=== PATIENT | male | born 1945 | race Caucasian/White ===

== ENCOUNTER 2020-08-06 10:33 | Emergency (ER) | payer MEDICARE, BC ==
[2020-08-06] MEDS ORDERED: Iopamidol 612 MG/ML 100 ML Bottle IVPUSH ONE (11:07)
[2020-08-06] MEDS ORDERED: Sodium Chloride 0.9% 10 ML Syringe FLUSH PRN (11:07)
[2020-08-06] MEDS ORDERED: Diatrizoate Meglumine/Diatrizoate Sodium 37% 120 ML Bottle PO ONE (11:07)
--- NOTE | 2020-08-06 11:07 | EDM.PDOC ---
ED HPI GENERAL MEDICAL PROBLEM - General Chief Complaint: Fever Stated Complaint: [facility] Time Seen by Provider: 08/06/20 10:53 Source of Information: Reports: Patient, Family (son), RN Notes Reviewed History Limitations: Reports: No Limitations - History of Present Illness INITIAL COMMENTS - FREE TEXT/NARRATIVE: Patient is a 74-year-old male who is brought into the ER by [facility] for the evaluation of a fever. Patient states that earlier this morning, he developed some right lower quadrant abdominal pain and high fever. He states that his fever at home was 103 F. When he presents to the ER, his temperature is 99.2 F. 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 The son in the room notes that the patient did have a UTI, roughly 2 months ago that was treated. Patient himself is not complaining of any nausea/vomiting/diarrhea, his last bowel movement was yesterday. He is not complaining of dysuria, but is having some urinary frequency which is an interval change for this gentleman. Primary care provider is Dr. Marc, and a provider down in [place]. He states that he has not felt this pain before ever, states that he cannot even stand straight, because the pain is so bad. He also has a remote history of a right hip replacement in March. He is also not having any cough or shortness of breath. The patient took 1 dose of isis-azu-[id number] medicine, that he got from [place] that appears to be a muscle relaxer (methocarbamol) , steroid (betamethasone), and indomethacin. Right Abdomen Pain Score (Numeric/FACES): 8 - Related Data Allergies Allergy/AdvReac Type Severity Reaction Status Date / Time No Known Allergies Allergy Verified 08/06/20 10:47 Home Meds: Home Meds levoFLOXacin [Levaquin] 500 mg PO DAILY #7 tab 08/06/20 [Rx] Past Medical History Cardiovascular History: Reports: Stents Gastrointestinal History: Reports: Colon Polyp - Infectious Disease History Infectious Disease History: Reports: Chicken Pox, Measles, Mumps - Past Surgical History GI Surgical History: Reports: Appendectomy Musculoskeletal Surgical History: Reports: Hip Replacement, Other (See Below) Other Musculoskeletal Surgeries/Procedures:: R Social & Family History - Tobacco Use Tobacco Use Status *Q: Current Every Day Tobacco User Years of Tobacco use: 50 Packs/Tins Daily: 0.3 - Caffeine Use Caffeine Use: Reports: Coffee - Recreational Drug Use Recreational Drug Use: Yes ED ROS ENT - Review of Systems Review Of Systems: Comprehensive ROS is negative, except as noted in HPI. ED EXAM, ENT - Physical Exam Exam: See Below Exam Limited By: No Limitations General Appearance: Alert, WD/WN, No Apparent Distress Respiratory/Chest: No Respiratory Distress, Lungs Clear, Normal Breath Sounds, No Accessory Muscle Use, Chest Non-Tender Cardiovascular: Normal Peripheral Pulses, Regular Rate, Rhythm, No Edema GI/Abdominal: Normal Bowel Sounds, Soft, No Distention, No Mass, Tender (RLQ exquisite tenderness) Extremities: Normal Inspection, Normal Capillary Refill Neurological: Alert, Oriented, Normal Cognition, No Motor/Sensory Deficits Psychiatric: Normal Affect, Normal Mood Skin: Warm, Dry, Intact, Normal Color, No Rash Course - Vital Signs Last Recorded V/S: Last Vital Signs Temp 99.2 F 08/06/20 10:39 Pulse 89 08/06/20 10:39 Resp 16 08/06/20 10:39 BP 119/97 H 08/06/20 10:39 Pulse Ox 97 08/06/20 10:39 - Orders/Labs/Meds Orders: Active Orders 24 hr Category Date Time Status Peripheral IV Care [RC] . DIRECTED Care 08/06/20 11:02 Active CULTURE BLOOD [BC] Stat Lab 08/06/20 10:47 Received CULTURE BLOOD [BC] Stat Lab 08/06/20 10:55 Received UA W/MICROSCOPIC [URIN] Stat Lab 08/06/20 11:01 Ordered Sodium Chloride 0.9% [Saline Flush] Med 08/06/20 11:01 Active 10 ml FLUSH ASDIRECTED PRN Blood Culture x2 Reflex Set [OM.PC] Stat Oth 08/06/20 10:41 Ordered Peripheral IV Insertion Adult [OM.PC] Routine Oth 08/06/20 11:01 Ordered Medication Orders Sodium Chloride (Sodium Chloride 0.9% 10 Ml Syringe) 10 ml FLUSH ASDIRECTED PRN PRN Reason: Keep Vein Open Last Admin: 08/06/20 12:13 Dose: 10 ml Documented by: Admin: 08/06/20 11:58 Dose: 10 ml Documented by: MUSHTAQ Labs: Laboratory Tests 08/06/20 08/06/20 08/06/20 Range/Units 10:39 10:47 10:47 WBC 15.60 H (4.23-9.07) K/mm3 RBC 4.44 L (4.63-6.08) M/mm3 Hgb 13.5 L (13.7-17.5) gm/dl Hct 39.8 L (40.1-51.0) % MCV 89.6 D (79.0-92.2) fl MCH 30.4 (25.7-32.2) pg MCHC 33.9 (32.2-35.5) g/dl RDW Std Deviation 48.4 H (35.1-43.9) fL Plt Count 231 (163-337) K/mm3 MPV 9.8 (9.4-12.3) fl Neut % (Auto) 80.5 H (34.0-67.9) % Lymph % (Auto) 10.4 L (21.8-53.1) % [place] % (Auto) 8.3 (5.3-12.2) % Eos % (Auto) 0.4 L (0.8-7.0) Baso % (Auto) 0.1 (0.1-1.2) % Neut # (Auto) 12.55 H (1.78-5.38) K/mm3 Lymph # (Auto) 1.63 (1.32-3.57) K/mm3 [place] # (Auto) 1.29 H (0.30-0.82) K/mm3 Eos # (Auto) 0.06 (0.04-0.54) K/mm3 Baso # (Auto) 0.02 (0.01-0.08) K/mm3 Manual Slide Review Normal smear Sodium 135 L (136-145) mEq/L Potassium 3.9 (3.5-5.1) mEq/L Chloride 98 (98-107) mEq/L Carbon Dioxide 24 (21-32) mEq/L Anion Gap 16.9 H (5-15) BUN 20 H (7-18) mg/dL Creatinine 1.0 (0.7-1.3) mg/dL Est Cr Clr Drug Dosing 58.76 mL/min Estimated GFR (MDRD) > 60 (>60) mL/min BUN/Creatinine Ratio 20.0 H (14-18) Glucose 109 H (70-99) mg/dL Lactic Acid (0.4-2.0) mmol/L Calcium 9.0 (8.5-10.1) mg/dL Total Bilirubin 0.8 (0.2-1.0) mg/dL AST 19 (15-37) U/L ALT 35 (16-63) U/L Alkaline Phosphatase 60 (46-116) U/L C-Reactive Protein 5.7 H* (<1.0) mg/dL Total Protein 7.3 (6.4-8.2) g/dl Albumin 3.5 (3.4-5.0) g/dl Globulin 3.8 gm/dL Albumin/Globulin Ratio 0.9 L (1-2) Urine Color (Yellow) Urine Appearance (Clear) Urine pH (5.0-8.0) Ur Specific [place] (1.005-1.030) Urine Protein (Negative) Urine Glucose (UA) (Negative) Urine Ketones (Negative) Urine Occult Blood (Negative) Urine Nitrite (Negative) Urine Bilirubin (Negative) Urine Urobilinogen (0.2-1.0) Ur Leukocyte Esterase (Negative) SARS-CoV-2 RNA ([place]) Negative (NEGATIVE) 08/06/20 08/06/20 Range/Units 10:47 12:37 WBC (4.23-9.07) K/mm3 RBC (4.63-6.08) M/mm3 Hgb (13.7-17.5) gm/dl Hct (40.1-51.0) % MCV (79.0-92.2) fl MCH (25.7-32.2) pg MCHC (32.2-35.5) g/dl RDW Std Deviation (35.1-43.9) fL Plt Count (163-337) K/mm3 MPV (9.4-12.3) fl Neut % (Auto) (34.0-67.9) % Lymph % (Auto) (21.8-53.1) % [place] % (Auto) (5.3-12.2) % Eos % (Auto) (0.8-7.0) Baso % (Auto) (0.1-1.2) % Neut # (Auto) (1.78-5.38) K/mm3 Lymph # (Auto) (1.32-3.57) K/mm3 [place] # (Auto) (0.30-0.82) K/mm3 Eos # (Auto) (0.04-0.54) K/mm3 Baso # (Auto) (0.01-0.08) K/mm3 Manual Slide Review Sodium (136-145) mEq/L Potassium (3.5-5.1) mEq/L Chloride (98-107) mEq/L Carbon Dioxide (21-32) mEq/L Anion Gap (5-15) BUN (7-18) mg/dL Creatinine (0.7-1.3) mg/dL Est Cr Clr Drug Dosing mL/min Estimated GFR (MDRD) (>60) mL/min BUN/Creatinine Ratio (14-18) Glucose (70-99) mg/dL Lactic Acid 0.9 (0.4-2.0) mmol/L Calcium (8.5-10.1) mg/dL Total Bilirubin (0.2-1.0) mg/dL AST (15-37) U/L ALT (16-63) U/L Alkaline Phosphatase (46-116) U/L C-Reactive Protein (<1.0) mg/dL Total Protein (6.4-8.2) g/dl Albumin (3.4-5.0) g/dl Globulin gm/dL Albumin/Globulin Ratio (1-2) Urine Color Yellow (Yellow) Urine Appearance Clear (Clear) Urine pH 6.0 (5.0-8.0) Ur Specific [place] 1.020 (1.005-1.030) Urine Protein Trace H (Negative) Urine Glucose (UA) Negative (Negative) Urine Ketones Negative (Negative) Urine Occult Blood Negative (Negative) Urine Nitrite Negative (Negative) Urine Bilirubin Negative (Negative) Urine Urobilinogen 0.2 (0.2-1.0) Ur Leukocyte Esterase Negative (Negative) SARS-CoV-2 RNA ([place]) (NEGATIVE) Meds: Medications Generic Name Dose Route Start Last Admin Trade Name Freq PRN Reason Stop Dose Admin Sodium Chloride 10 ml 08/06/20 11:01 08/06/20 12:13 Sodium Chloride 0.9% 10 Ml Syringe FLUSH 10 ml ASDIRECTED PRN Administration Keep Vein Open Discontinued Medications Generic Name Dose Route Start Last Admin Trade Name Freq PRN Reason Stop Dose Admin Diatrizoate Meglum/Diatrizoate Sod 120 ml 08/06/20 11:07 08/06/20 12:13 Diatrizoate Meglumine/Diatrizoate Sodium 37% 120 Ml Bottle PO 08/06/20 11:08 120 ml ONETIME ONE Administration Sodium Chloride 1,000 mls @ 999 mls/hr 08/06/20 11:28 08/06/20 11:58 Normal Saline IV 08/06/20 12:28 999 mls/hr ONETIME ONE Administration Iopamidol 100 ml 08/06/20 11:07 08/06/20 12:13 Iopamidol 612 Mg/Ml 100 Ml Bottle IVPUSH 08/06/20 11:08 100 ml ONETIME ONE Administration Iopamidol 50 ml 08/06/20 12:14 08/06/20 12:14 Iopamidol 612 Mg/Ml 50 Ml Sdv IVPUSH 08/06/20 12:15 25 ml ONETIME ONE Administration Ondansetron HCl 4 mg 08/06/20 11:28 08/06/20 11:58 Ondansetron 4 Mg/2 Ml Sdv IVPUSH 08/06/20 11:29 4 mg ONETIME ONE Administration Sodium Chloride 10 ml 08/06/20 11:07 Sodium Chloride 0.9% 10 Ml Syringe FLUSH ONETIME PRN IV FLUSH - Re-Assessments/Exams Free Text/Narrative Re-Assessment/Exam: 08/06/20 11:07 Patient presents to the ER for the evaluation of his fever. He did arrive to the ER prior to my shift starting so some labs have already been ordered, have ordered a urinalysis, and a abdomen pelvis CT for further investigation. 08/06/20 11:59 Patient's white blood cell count is elevated at 15.6 with 80% neutrophils on the auto differential. Metabolic panel demonstrates a creatinine/GFR within normal range, lactic in normal range, CRP is elevated at 5.7. Covid screen is negative for today's purposes. Urinalysis is still pending. I did look at the chest x-ray, however official radiology read is pending, I do not see any acute processes that could be worrisome. 08/06/20 12:08 The patient's chest x-ray has been read, and demonstrates no acute abnormalities. There was an area of increased density in the Left upper lung. 08/06/20 12:53 UA is unremarkable for infection; CT report is pending. I was told by nursing staff that the patient was somewhat confused this morning and was found in bed by his in home nurse with all of his clothes on and said that he "couldn't get out of bed". Family is also worried that he seems about the lethargy. 08/06/20 13:[address] abdomen CT demonstrates no acute abnormalities that would be the source of his pain. He does have a fat-containing left inguinal hernia, diffuse diverticulosis without inflammation to consider diverticulitis. There is a small 4 mm lung nodule within the base of the right lung, which should have a noncontrast chest CT in about a year if the patient is a smoker. He does have also mild increase stool within the colon which might be a cause of the abdomen pain, but I do highly believe that the fever is caused by the area of consolidat ion in the lung, concerning for possible pneumonia with fever and elevated white count. We will go ahead and start the patient on antibiotics, his first dose will be IV Levaquin in the ER, and we will give him 7-day course outpatient barr. He will be directed to return to the ER if anything seems to change or worsen in his disease process. Departure - Departure Time of Disposition: 13:22 Disposition: Home, Self-Care 01 Condition: Good Clinical Impression: Right groin pain Pneumonia Qualifiers: Pneumonia type: due to unspecified organism Laterality: left Lung location: upper lobe of lung Qualified Code(s): J18.9 - Pneumonia, unspecified organism Constipation Qualifiers: Constipation type: other constipation type Qualified Code(s): K59.09 - Other constipation - Discharge Information *PRESCRIPTION DRUG MONITORING PROGRAM REVIEWED*: No *COPY OF PRESCRIPTION DRUG MONITORING REPORT IN PATIENT [place]ARRI[place]: No Instructions: Community-Acquired Pneumonia, Adult, [id number] Forms: ED Department Discharge Additional Instructions: You were evaluated in the ER today for your fever, and right lower groin/abdomen pain. Extensive work-up was done at today's visit, to include laboratory evaluation that demonstrated an elevated white count, and elevated markers for inflammation, indicating bacterial infection, your chest x-ray was concerning for pneumonia on your left upper lung. You have been given 1 dose of IV Levaquin in the ER, and will be started on oral Levaquin on outpatient basis, dosing will be 1 tablet daily for the next 7 days. This medication was electronically prescribed to the [facility] located on [address]. Your CT also demonstrated a bit of stool in the colon, which is consistent with constipation, you have been provided with magnesium citrate, please drink one half bottle, if you do not have a rather large bowel movement within a few hours, repeat with the last half bottle. As far as your groin pain goes, you may take 500 mg Tylenol or 600 mg ibuprofen every 6 hours as needed for further pain relief. Please discontinue the use of the medication that you were already taking that came from [place]. Recommend you get a follow-up appointment with your primary care provider, after you have finished your course of antibiotics. Do not hesitate to return to the ER at any time if symptoms change or worsen. Sepsis Event Note (ED) - Evaluation Sepsis Screening Result: No Definite Risk - Focused Exam Vital Signs: Vital Signs Temp Pulse Resp BP Pulse Ox 08/06/20 10:39 99.2 F 89 16 119/97 H 97 - My Orders Last 24 Hours: My Active Orders 08/06/20 10:41 Blood Culture x2 Reflex Set [OM.PC] Stat 08/06/20 10:47 CULTURE BLOOD [BC] Stat 08/06/20 10:55 CULTURE BLOOD [BC] Stat 08/06/20 11:01 UA W/MICROSCOPIC [URIN] Stat Sodium Chloride 0.9% [Saline Flush] 10 ml FLUSH ASDIRECTED PRN Peripheral IV Insertion Adult [OM.PC] Routine 08/06/20 11:02 Peripheral IV Care [RC] . DIRECTED - Assessment/Plan Last 24 Hours: My Active Orders 08/06/20 10:41 Blood Culture x2 Reflex Set [OM.PC] Stat 08/06/20 10:47 CULTURE BLOOD [BC] Stat 08/06/20 10:55 CULTURE BLOOD [BC] Stat 08/06/20 11:01 UA W/MICROSCOPIC [URIN] Stat Sodium Chloride 0.9% [Saline Flush] 10 ml FLUSH ASDIRECTED PRN Peripheral IV Insertion Adult [OM.PC] Routine 08/06/20 11:02 Peripheral IV Care [RC] . DIRECTED
[2020-08-06] MEDS ORDERED: Ondansetron 4 MG/2 ML SDV IVPUSH ONE (11:28)
[2020-08-06] MEDS ORDERED: Sodium Chloride 0.9% 1,000 ML IV ONE (11:28)
[2020-08-06] MEDS: Sodium Chloride 0.9% 10 ML Syringe FLUSH PRN ×2 (11:58→12:13)
--- NOTE | 2020-08-06 12:05 | CR ---
Chest: Portable view of the chest was obtained. Comparison: No prior chest imaging is available. Heart size and mediastinum are normal. Lungs are clear with no acute parenchymal change. Small area of increased density is noted within the left upper lung which is believed to be benign. Bony structures are osteopenic. Mild degenerative change is scattered within the spine as well as within the right acromioclavicular joint. Impression: 1. Findings as noted above. 2. Nothing acute is seen on portable chest x-ray. Diagnostic code #2
[2020-08-06] MEDS ORDERED: Iopamidol 612 MG/ML 50 ML SDV IVPUSH ONE (12:14)
--- NOTE | 2020-08-06 12:59 | CT ---
CT abdomen and pelvis Technique: Multiple axial sections were obtained from above the dome of the diaphragm inferiorly through the pubic symphysis. Intravenous and oral contrast have been given. Delayed images were obtained through the bladder. Reconstructed coronal and sagittal images were also obtained. Comparison: No prior abdominal or pelvic CT study is available. Findings: Slight increased density within the right lung base is seen as well as minimal density within the posterior left lung base. Findings most likely represent areas of scarring. There is a small nodule also seen within the right lung base measuring 4 mm. Atherosclerotic calcification is seen within the coronary arteries. Liver contains no focal parenchymal abnormality. Spleen is within normal limits. Adrenal glands shows no discrete abnormality. Pancreas appears within normal limits. Gallbladder contains no calcified gallstones. Kidneys show symmetric contrast enhancement with no hydronephrosis or mass being seen. Abdominal aorta shows atherosclerotic change which continues into the iliac vessels with no aneurysm. No retroperitoneal adenopathy or mesenteric abnormalities are seen. No pelvic mass or adenopathy is seen. Mild artifact is noted from right hip prosthesis. There is a small fat-containing left inguinal hernia being noted. Entire colon shows evidence of diverticuli. No inflammatory change is seen to indicate definite diverticulitis. Appendix is not visualized. No bowel dilatation or bowel wall thickening is seen. Delayed images show contrast within the distal ureter and within the bladder. Mild increased stool is noted within the colon. Bone window settings were reviewed which show diffuse scattered end plate spurring with no acute osseous abnormality being seen. Impression: 1. Fat-containing left inguinal hernia. Diffuse diverticulosis throughout the colon without inflammatory change or diverticulitis. 2. Small 4 mm nodule within the right lung base. If patient is a smoker, recommend noncontrast chest CT study in one year. If patient is not a smoker, this can be ignored. 3. Mild increased stool within the colon. 4. Other nonacute findings as noted above. Diagnostic code #2
[2020-08-06] MEDS ORDERED: Levofloxacin/Dextrose 5%-Water 500 MG in Premix Bag 1 BAG IV ONE (13:10)
[2020-08-06] MEDS ORDERED: Magnesium Citrate Solution 296 ML Bottle PO ONE (13:12)
== END 2020-08-06 14:50 | disposition home or self-care (01) ==
LOC: JD.ED 10:33
DX: J18.9 Pneumonia, unspecified organism (principal); K59.09 Other constipation; Z72.0 Tobacco use; Z20.822 Contact with and (suspected) exposure to COVID-19
CPT/HCPCS: 36415; 71045; 74177; 80053; 81001; 83605; 85025; 86140; 87040; 96365; 96375; 99285; A9270; J1956; J2405; J7030; Q9963; Q9967; U0002; 99284

== ENCOUNTER 2022-11-03 08:22 | Day surgery (SDC) | payer MEDICARE, BC ==
[~2022-11-03 08:22] MED LIST: Lactated Ringers 1,000 ML IV SCH; Sodium Chloride 0.9% 10 ML Syringe FLUSH PRN; Sodium Chloride 0.9% 10 ML Syringe FLUSH SCH
[2022-11-03] MEDS ORDERED: Propofol 200 MG/20 ML SDV ONE ×2 (09:54→11:00)
[2022-11-03] MEDS ORDERED: fentaNYL 100 MCG/2 ML SDV ONE (09:54)
== END 2022-11-03 12:05 | disposition home or self-care (01) ==
LOC: JD.SDS 08:22
PROVIDERS: ATTEND Surgery
DX: D12.3 Benign neoplasm of transverse colon (principal); D12.0 Benign neoplasm of cecum; D12.2 Benign neoplasm of ascending colon; D12.4 Benign neoplasm of descending colon; K57.30 Diverticulosis of large intestine without perforation or abscess without bleeding; K64.8 Other hemorrhoids; K21.00 Gastro-esophageal reflux disease with esophagitis, without bleeding; K44.9 Diaphragmatic hernia without obstruction or gangrene; K29.50 Unspecified chronic gastritis without bleeding; K29.80 Duodenitis without bleeding; K52.9 Noninfective gastroenteritis and colitis, unspecified; K22.89 Other specified disease of esophagus; K22.2 Esophageal obstruction; D64.9 Anemia, unspecified; I25.10 Atherosclerotic heart disease of native coronary artery without angina pectoris; E66.9 Obesity, unspecified; N40.1 Benign prostatic hyperplasia with lower urinary tract symptoms; N52.9 Male erectile dysfunction, unspecified; I10 Essential (primary) hypertension; Z68.30 Body mass index [BMI] 30.0-30.9, adult; Z90.89 Acquired absence of other organs; Z98.49 Cataract extraction status, unspecified eye; Z87.891 Personal history of nicotine dependence; Z90.49 Acquired absence of other specified parts of digestive tract; Z96.649 Presence of unspecified artificial hip joint; Z79.82 Long term (current) use of aspirin; Z79.899 Other long term (current) drug therapy
CPT/HCPCS: 00813; 88305; 88342; 99100; J2704; J3010; J3490; J7120

== ENCOUNTER 2023-02-03 09:31 | Emergency (ER) | payer MEDICARE, BC ==
[2023-02-03 10:37] LABS: CORONAVIRUS COVID-19 NAA POSITIVE (NEGATIVE); INFLUENZA A NAA NEGATIVE (NEGATIVE)
[2023-02-03 10:41] LABS: BASOPHILS PERCENT AUTO 0.9 % (0.0-1.0); EOSINOPHILS PERCENT AUTO 0.5 % (0.0-6.0); HEMATOCRIT 30.1 % (42.0-52.0); HEMOGLOBIN 10.3 gm/dl (14.0-18.0); IMMATURE GRAN ABSOLUTE AUTO 0.01 K/mm3 (0.00-0.05); IMMATURE GRAN PERCENT AUTO 0.5 % (0.0-0.4); LYMPHOCYTES ABSOLUTE AUTO 0.6 K/mm3 (1.0-4.8); LYMPHOCYTES PERCENT AUTO 27.8 % (24.0-44.0); MEAN CORPUSCULAR HEMOGLOBIN 35.5 pg (28.0-32.0); MEAN CORPUSCULAR HGB CONC 34.2 g/dl (32.0-36.0); MEAN CORPUSCULAR VOLUME 103.8 fl (83.0-99.0); MEAN PLATELET VOLUME 10.3 fl (9.4-12.4); MONOCYTES ABSOLUTE AUTO 0.1 K/mm3 (0.0-0.8); MONOCYTES PERCENT AUTO 5.2 % (0.0-8.0); NEUTROPHILS ABSOLUTE AUTO 1.4 K/mm3 (1.8-7.7); NEUTROPHILS PERCENT AUTO 65.1 % (41.0-71.0); PLATELET COUNT,PLT 151 K/mm3 (150-400)
[2023-02-03 10:44] LABS: WHITE BLOOD CELL COUNT,WBC 2.12 K/mm3 (3.9-11.3)
[2023-02-03 11:00] LABS: A/G RATIO 0.9 (1-2); ALBUMIN 3.7 g/dl (3.4-5.0); ANION GAP 14.9 (5-15); BILIRUBIN TOTAL 0.6 mg/dL (0.2-1.0); BUN/CREATININE RATIO 14.6 (14-18); CALCIUM 8.8 mg/dL (8.5-10.1); CREATININE 1.3 mg/dL (0.7-1.3); EST CRCL DRUG DOSING (CG) 43.08 mL/min; POTASSIUM,K 3.9 mEq/L (3.5-5.1); PROTEIN TOTAL,TP 7.7 g/dl (6.4-8.2)
== END 2023-02-03 12:10 | disposition home or self-care (01) ==
LOC: JD.ED 09:31
DX: U07.1 COVID-19 (principal); F17.210 Nicotine dependence, cigarettes, uncomplicated; I25.10 Atherosclerotic heart disease of native coronary artery without angina pectoris; E78.5 Hyperlipidemia, unspecified; Z79.82 Long term (current) use of aspirin; Z79.899 Other long term (current) drug therapy; Z88.8 Allergy status to other drugs, medicaments and biological substances
CPT/HCPCS: 0240U; 36415; 70450; 80053; 85025; 99284; 99283

== ENCOUNTER 2023-06-17 06:57 | Inpatient (IN) | payer MEDICARE, BC ==
[2023-06-17 07:32] LABS: BASOPHILS ABSOLUTE AUTO 0.1 K/mm3 (0.0-0.2); BASOPHILS PERCENT AUTO 0.6 % (0.0-1.0); EOSINOPHILS PERCENT AUTO 0.1 % (0.0-6.0); HEMOGLOBIN 9.6 gm/dl (14.0-18.0); IMMATURE GRAN ABSOLUTE AUTO 0.21 K/mm3 (0.00-0.05); IMMATURE GRAN PERCENT AUTO 2.2 % (0.0-0.4); LYMPHOCYTES ABSOLUTE AUTO 0.7 K/mm3 (1.0-4.8); LYMPHOCYTES PERCENT AUTO 6.9 % (24.0-44.0); MEAN CORPUSCULAR HEMOGLOBIN 33.3 pg (28.0-32.0); MEAN CORPUSCULAR HGB CONC 34.3 g/dl (32.0-36.0); MEAN PLATELET VOLUME 9.8 fl (9.4-12.4); MONOCYTES ABSOLUTE AUTO 1.3 K/mm3 (0.0-0.8); MONOCYTES PERCENT AUTO 13.3 % (0.0-8.0); NEUTROPHILS ABSOLUTE AUTO 7.5 K/mm3 (1.8-7.7); NEUTROPHILS PERCENT AUTO 76.9 % (41.0-71.0); NRBC ABSOLUTE 0.06 (0.00-0.02); NRBC PERCENT 0.6 % (0.0-0.2); RED BLOOD CELL COUNT 2.88 M/mm3 (4.52-5.90); WHITE BLOOD CELL COUNT,WBC 9.73 K/mm3 (3.9-11.3)
[2023-06-17 07:33] LABS: MEAN CORPUSCULAR VOLUME 97.2 fl (83.0-99.0); PLATELET COUNT,PLT 330 K/mm3 (150-400)
[2023-06-17] MEDS: Sodium Chloride 0.9% 1,000 ML IV ONE (07:50)
[2023-06-17 08:04] LABS: LACTIC ACID 1.9 mmol/L (0.4-2.0)
[2023-06-17 08:10] LABS: A/G RATIO 0.9 (1-2); ALANINE AMINOTRANSFERASE,ALT 32 U/L (16-63); ALBUMIN 3.2 g/dl (3.4-5.0); ALKALINE PHOSPHATASE 49 U/L (46-116); ANION GAP 15.2 (5-15); ASPARTATE AMNIOTRANSFERASE,AST 21 U/L (15-37); BILIRUBIN TOTAL 0.8 mg/dL (0.2-1.0); BLOOD UREA NITROGEN,BUN 16 mg/dL (7-18); BUN/CREATININE RATIO 12.3 (14-18); C-REACTIVE PROTEIN 1.02 mg/dL (<0.30); CALCIUM 8.6 mg/dL (8.5-10.1); CARBON DIOXIDE,CO2 24 mEq/L (21-32); CHLORIDE,CL 101 mEq/L (98-107); CREATININE 1.3 mg/dL (0.7-1.3); ESTIMATED GFR 56 mL/min (>60); GLUCOSE RANDOM 121 mg/dL (70-99); MAGNESIUM 1.6 mg/dL (1.8-2.4); POTASSIUM,K 4.2 mEq/L (3.5-5.1); PROTEIN TOTAL,TP 6.6 g/dl (6.4-8.2); SODIUM,NA 136 mEq/L (136-145)
[2023-06-17] MEDS: cefTRIAXone 1 GM in Sodium Chloride 0.9% 100 ML IV ONE (08:27)
[2023-06-17 08:57] LABS: APPEARANCE,URINE CLEAR (Clear); BILIRUBIN,URINE NEGATIVE (Negative); COLOR,URINE YELLOW (Yellow); GLUCOSE,URINE NEGATIVE (Negative); KETONES,URINE NEGATIVE (Negative); LEUKOCYTE ESTERASE,URINE NEGATIVE (Negative); NITRITE,URINE NEGATIVE (Negative); OCCULT BLOOD,URINE NEGATIVE (Negative); PROTEIN,URINE NEGATIVE (Negative); UROBILINOGEN,URINE 0.2 (0.2-1.0)
[2023-06-17 09:40] LABS: CORONAVIRUS COVID-19 NAA NEGATIVE (NEGATIVE); INFLUENZA A NAA NEGATIVE (NEGATIVE); RESPIRATORY SYNCYTIAL VIR NAA NEGATIVE (NEGATIVE)
[2023-06-17] MEDS ORDERED: Ondansetron 4 MG Tab.DIS PO PRN (11:16)
[2023-06-17] MEDS ORDERED: Ondansetron 4 MG/2 ML SDV IV PRN (11:16)
[2023-06-17] MEDS ORDERED: Docusate Sodium 100 MG Cap PO PRN (11:16)
[2023-06-17] MEDS ORDERED: Acetaminophen 325 MG Tab PO PRN (11:16)
[2023-06-17] MEDS ORDERED: Albuterol 0.083% 2.5 MG/3 ML Neb Soln NEB PRN (12:44)
[2023-06-17] MEDS: Heparin Sodium 5,000 Units/ML Vial SUBCUT SCH (13:34)
[2023-06-17] MEDS: Lactated Ringers 1,000 ML IV SCH (13:34)
[2023-06-17] MEDS: Cefepime 2 GM in Sodium Chloride 0.9% 50 ML IV SCH (13:34)
[2023-06-17] MEDS: VANCOmycin 1.25 GM/250 ML 1.25 GM in Premix Bag 1 BAG IV SCH (14:16)
[2023-06-18 05:34] LABS: BASOPHILS ABSOLUTE AUTO 0.1 K/mm3 (0.0-0.2); BASOPHILS PERCENT AUTO 1.1 % (0.0-1.0); EOSINOPHILS PERCENT AUTO 0.7 % (0.0-6.0); HEMATOCRIT 22.5 % (42.0-52.0); IMMATURE GRAN ABSOLUTE AUTO 0.17 K/mm3 (0.00-0.05); IMMATURE GRAN PERCENT AUTO 2.8 % (0.0-0.4); LYMPHOCYTES ABSOLUTE AUTO 1.1 K/mm3 (1.0-4.8); LYMPHOCYTES PERCENT AUTO 17.6 % (24.0-44.0); MEAN CORPUSCULAR HEMOGLOBIN 33.6 pg (28.0-32.0); MEAN CORPUSCULAR HGB CONC 33.8 g/dl (32.0-36.0); MEAN CORPUSCULAR VOLUME 99.6 fl (83.0-99.0); MEAN PLATELET VOLUME 10.9 fl (9.4-12.4); MONOCYTES ABSOLUTE AUTO 0.9 K/mm3 (0.0-0.8); MONOCYTES PERCENT AUTO 14.1 % (0.0-8.0); NEUTROPHILS ABSOLUTE AUTO 3.9 K/mm3 (1.8-7.7); NEUTROPHILS PERCENT AUTO 63.7 % (41.0-71.0); NRBC ABSOLUTE 0.04 (0.00-0.02); NRBC PERCENT 0.7 % (0.0-0.2); PLATELET COUNT,PLT 257 K/mm3 (150-400); RED BLOOD CELL COUNT 2.26 M/mm3 (4.52-5.90); WHITE BLOOD CELL COUNT,WBC 6.09 K/mm3 (3.9-11.3)
[2023-06-18 05:39] LABS: HEMOGLOBIN 7.6 gm/dl (14.0-18.0)
[2023-06-18 05:53] LABS: A/G RATIO 0.8 (1-2); ALBUMIN 2.4 g/dl (3.4-5.0); ANION GAP 12.8 (5-15); BILIRUBIN TOTAL 0.4 mg/dL (0.2-1.0); CALCIUM 8.1 mg/dL (8.5-10.1); EST CRCL DRUG DOSING (CG) 54.05 mL/min; POTASSIUM,K 3.8 mEq/L (3.5-5.1); PROTEIN TOTAL,TP 5.3 g/dl (6.4-8.2); VANCOMYCIN RANDOM 6.3 ug/mL
[2023-06-18] MEDS ORDERED: Sennosides 8.6 MG Tab PO PRN (08:30)
[2023-06-18] MEDS ORDERED: Polyethylene Glycol 3350 Powder 17 GM Packet PO PRN (08:30)
[2023-06-18] MEDS: Acyclovir 200 MG Cap PO SCH (09:35)
[2023-06-18] MEDS: POSACONAZOLE 100 MG PO SCH (09:36)
[2023-06-18] MEDS: VANCOmycin 1.5 GM/300 ML 1.5 GM in Premix Bag 1 BAG IV SCH (15:17)
[2023-06-19 05:33] LABS: BASOPHILS ABSOLUTE AUTO 0.1 K/mm3 (0.0-0.2); BASOPHILS PERCENT AUTO 1.1 % (0.0-1.0); EOSINOPHILS ABSOLUTE AUTO 0.1 K/mm3 (0.0-0.4); EOSINOPHILS PERCENT AUTO 1.3 % (0.0-6.0); HEMATOCRIT 24.3 % (42.0-52.0); HEMOGLOBIN 8.4 gm/dl (14.0-18.0); IMMATURE GRAN ABSOLUTE AUTO 0.27 K/mm3 (0.00-0.05); LYMPHOCYTES ABSOLUTE AUTO 1.2 K/mm3 (1.0-4.8); LYMPHOCYTES PERCENT AUTO 22.5 % (24.0-44.0); MEAN CORPUSCULAR HEMOGLOBIN 33.3 pg (28.0-32.0); MEAN CORPUSCULAR HGB CONC 34.6 g/dl (32.0-36.0); MEAN PLATELET VOLUME 10.9 fl (9.4-12.4); MONOCYTES ABSOLUTE AUTO 0.9 K/mm3 (0.0-0.8); MONOCYTES PERCENT AUTO 16.4 % (0.0-8.0); NEUTROPHILS ABSOLUTE AUTO 2.9 K/mm3 (1.8-7.7); NEUTROPHILS PERCENT AUTO 53.7 % (41.0-71.0); NRBC ABSOLUTE 0.03 (0.00-0.02); NRBC PERCENT 0.6 % (0.0-0.2); PLATELET COUNT,PLT 272 K/mm3 (150-400); RED BLOOD CELL COUNT 2.52 M/mm3 (4.52-5.90); WHITE BLOOD CELL COUNT,WBC 5.38 K/mm3 (3.9-11.3)
[2023-06-19 05:41] LABS: MEAN CORPUSCULAR VOLUME 96.4 fl (83.0-99.0)
== END 2023-06-19 07:58 | disposition home or self-care (01) | DRG 871 ==
LOC: JD.ED 06:57 → JD.MS 11:16
PROVIDERS: ADMIT Hospitalist; ATTEND Hospitalist
DX: B34.9 Viral infection, unspecified (principal); R53.1 Weakness; A41.9 Sepsis, unspecified organism; J18.9 Pneumonia, unspecified organism; C92.00 Acute myeloblastic leukemia, not having achieved remission; D84.821 Immunodeficiency due to drugs; E78.5 Hyperlipidemia, unspecified; I25.10 Atherosclerotic heart disease of native coronary artery without angina pectoris; K21.9 Gastro-esophageal reflux disease without esophagitis; N40.0 Benign prostatic hyperplasia without lower urinary tract symptoms; Z96.649 Presence of unspecified artificial hip joint; F17.210 Nicotine dependence, cigarettes, uncomplicated; Z88.8 Allergy status to other drugs, medicaments and biological substances; Z79.899 Other long term (current) drug therapy; Z79.2 Long term (current) use of antibiotics; Z95.5 Presence of coronary angioplasty implant and graft; Z98.890 Other specified postprocedural states; Z90.89 Acquired absence of other organs; Z98.49 Cataract extraction status, unspecified eye; Z86.010 Personal history of colon polyps
CPT/HCPCS: 0241U; 36415; 71045; 80053; 80202; 81003; 83605; 83735; 83880; 85025; 86140; 87040; 94667; 94668; 96361; 96365; 99285; 99223; 99232; 99239; A9270-GY; J0692; J0696; J1644; J3370; J3490; J7030; J7120

== ENCOUNTER 2023-07-03 14:51 | Inpatient (IN) | payer MEDICARE, BC ==
[2023-07-03 15:57] LABS: BASOPHILS PERCENT AUTO 0.2 % (0.0-1.0); EOSINOPHILS ABSOLUTE AUTO 0.2 K/mm3 (0.0-0.4); EOSINOPHILS PERCENT AUTO 3.1 % (0.0-6.0); HEMATOCRIT 27.8 % (42.0-52.0); HEMOGLOBIN 9.3 gm/dl (14.0-18.0); IMMATURE GRAN ABSOLUTE AUTO 0.07 K/mm3 (0.00-0.05); IMMATURE GRAN PERCENT AUTO 1.3 % (0.0-0.4); LYMPHOCYTES ABSOLUTE AUTO 0.5 K/mm3 (1.0-4.8); LYMPHOCYTES PERCENT AUTO 9.9 % (24.0-44.0); MEAN CORPUSCULAR HEMOGLOBIN 32.9 pg (28.0-32.0); MEAN CORPUSCULAR HGB CONC 33.5 g/dl (32.0-36.0); MEAN CORPUSCULAR VOLUME 98.2 fl (83.0-99.0); MEAN PLATELET VOLUME 10.3 fl (9.4-12.4); MONOCYTES ABSOLUTE AUTO 0.2 K/mm3 (0.0-0.8); MONOCYTES PERCENT AUTO 3.8 % (0.0-8.0); NEUTROPHILS ABSOLUTE AUTO 4.3 K/mm3 (1.8-7.7); NEUTROPHILS PERCENT AUTO 81.7 % (41.0-71.0); PLATELET COUNT,PLT 197 K/mm3 (150-400); RED BLOOD CELL COUNT 2.83 M/mm3 (4.52-5.90); WHITE BLOOD CELL COUNT,WBC 5.23 K/mm3 (3.9-11.3)
[2023-07-03 16:18] LABS: A/G RATIO 0.9 (1-2); ALBUMIN 3.2 g/dl (3.4-5.0); ANION GAP 14.3 (5-15); BUN/CREATININE RATIO 13.6 (14-18); CREATININE 1.1 mg/dL (0.7-1.3); EST CRCL DRUG DOSING (CG) 47.37 mL/min; MAGNESIUM 1.6 mg/dL (1.8-2.4); POTASSIUM,K 3.3 mEq/L (3.5-5.1); PROTEIN TOTAL,TP 6.6 g/dl (6.4-8.2)
[2023-07-03 16:20] LABS: LACTIC ACID 1.3 mmol/L (0.4-2.0)
[2023-07-03] MEDS: Sodium Chloride 0.9% 10 ML Syringe FLUSH PRN (16:20)
[2023-07-03] MEDS: Lactated Ringers 1,000 ML IV ONE (16:20)
[2023-07-03] MEDS: Ondansetron 4 MG/2 ML SDV IVPUSH ONE (16:20)
[2023-07-03 17:33] LABS: APPEARANCE,URINE CLEAR (Clear); BILIRUBIN,URINE NEGATIVE (Negative); COLOR,URINE YELLOW (Yellow); GLUCOSE,URINE NEGATIVE (Negative); KETONES,URINE NEGATIVE (Negative); LEUKOCYTE ESTERASE,URINE NEGATIVE (Negative); NITRITE,URINE NEGATIVE (Negative); OCCULT BLOOD,URINE NEGATIVE (Negative); PH,URINE 5.5 (5.0-8.0); PROTEIN,URINE 1+ (Negative); UROBILINOGEN,URINE 0.2 (0.2-1.0)
[2023-07-03 17:51] LABS: BACTERIA,URINE FEW /hpf (FEW); MUCUS,URINE MODERATE /hpf (FEW); RBC,URINE 0-5 /hpf (0-5); SQUAMOUS EPITHELIAL CELLS,UR 0-5 /hpf (0-5); WBC,URINE 0-5 /hpf (0-5)
[2023-07-03] MEDS ORDERED: oxyCODONE 5 MG Tab PO PRN (18:05)
[2023-07-03] MEDS ORDERED: Acetaminophen 325 MG Tab PO PRN (18:05)
[2023-07-03] MEDS: Heparin Sodium 5,000 Units/ML Vial SUBCUT SCH (18:46)
[2023-07-03] MEDS: Sodium Chloride 0.9% 1,000 ML IV SCH (18:46)
[2023-07-03] MEDS: Magnesium Sulfate/Water 2 GM/50 ML BAG IV ONE (18:46)
[2023-07-04 05:33] LABS: BASOPHILS PERCENT AUTO 0.4 % (0.0-1.0); EOSINOPHILS ABSOLUTE AUTO 0.2 K/mm3 (0.0-0.4); EOSINOPHILS PERCENT AUTO 8.2 % (0.0-6.0); HEMATOCRIT 23.5 % (42.0-52.0); HEMOGLOBIN 8.2 gm/dl (14.0-18.0); IMMATURE GRAN ABSOLUTE AUTO 0.05 K/mm3 (0.00-0.05); IMMATURE GRAN PERCENT AUTO 1.8 % (0.0-0.4); LYMPHOCYTES ABSOLUTE AUTO 0.6 K/mm3 (1.0-4.8); LYMPHOCYTES PERCENT AUTO 20.6 % (24.0-44.0); MEAN CORPUSCULAR HEMOGLOBIN 33.9 pg (28.0-32.0); MEAN CORPUSCULAR HGB CONC 34.9 g/dl (32.0-36.0); MEAN CORPUSCULAR VOLUME 97.1 fl (83.0-99.0); MEAN PLATELET VOLUME 12.1 fl (9.4-12.4); MONOCYTES ABSOLUTE AUTO 0.2 K/mm3 (0.0-0.8); NEUTROPHILS ABSOLUTE AUTO 1.8 K/mm3 (1.8-7.7); PLATELET COUNT,PLT 182 K/mm3 (150-400); RED BLOOD CELL COUNT 2.42 M/mm3 (4.52-5.90); WHITE BLOOD CELL COUNT,WBC 2.82 K/mm3 (3.9-11.3)
[2023-07-04 05:56] LABS: A/G RATIO 0.9 (1-2); ALBUMIN 2.6 g/dl (3.4-5.0); ANION GAP 12.8 (5-15); BILIRUBIN TOTAL 0.6 mg/dL (0.2-1.0); CALCIUM 7.2 mg/dL (8.5-10.1); EST CRCL DRUG DOSING (CG) 52.1 mL/min; MAGNESIUM 2.2 mg/dL (1.8-2.4); POTASSIUM,K 2.8 mEq/L (3.5-5.1); PROTEIN TOTAL,TP 5.4 g/dl (6.4-8.2)
[2023-07-04] MEDS: Potassium Chloride 10 MEQ in Premix Bag 1 BAG IV SCH ×2 (06:46→12:28)
[2023-07-04] MEDS: Potassium Chloride 20 MEQ Tab.ER PO SCH (07:56)
[2023-07-04] MEDS: Ondansetron 4 MG/2 ML SDV IV PRN (08:47)
[2023-07-04] MEDS ORDERED: Acyclovir 200 MG Cap PO SCH (09:00)
[2023-07-04] MEDS: POSACONAZOLE 100 MG PO SCH (11:10)
[2023-07-04] MEDS: Acyclovir 200 MG Cap PO SCH (11:10)
[2023-07-04] MEDS: Sodium Chloride 0.9% 1,000 ML IV SCH (21:29)
[2023-07-05 07:01] LABS: HEMATOCRIT 22.7 % (42.0-52.0); HEMOGLOBIN 7.7 gm/dl (14.0-18.0); MEAN CORPUSCULAR HEMOGLOBIN 32.9 pg (28.0-32.0); MEAN CORPUSCULAR HGB CONC 33.9 g/dl (32.0-36.0); MEAN PLATELET VOLUME 10.7 fl (9.4-12.4); PLATELET COUNT,PLT 154 K/mm3 (150-400); RED BLOOD CELL COUNT 2.34 M/mm3 (4.52-5.90); WHITE BLOOD CELL COUNT,WBC 2.72 K/mm3 (3.9-11.3)
[2023-07-05 07:19] LABS: A/G RATIO 0.9 (1-2); ALBUMIN 2.5 g/dl (3.4-5.0); ANION GAP 13.9 (5-15); BILIRUBIN TOTAL 0.4 mg/dL (0.2-1.0); BUN/CREATININE RATIO 13.8 (14-18); CALCIUM 7.6 mg/dL (8.5-10.1); CREATININE 0.8 mg/dL (0.7-1.3); EST CRCL DRUG DOSING (CG) 65.13 mL/min; MAGNESIUM 2.3 mg/dL (1.8-2.4); POTASSIUM,K 3.9 mEq/L (3.5-5.1); PROTEIN TOTAL,TP 5.4 g/dl (6.4-8.2)
[2023-07-05] MEDS: ALLOPURINOL 300 MG PO SCH (09:29)
[2023-07-05 13:20] LABS: HEMATOCRIT 25.9 % (42.0-52.0)
== END 2023-07-05 15:45 | disposition home or self-care (01) | DRG 641 ==
LOC: JD.ED 14:51 → JD.MS 18:02 → OBSVTOIN 07-04 12:30
PROVIDERS: ADMIT Internal Medicine; ATTEND Internal Medicine
DX: E86.0 Dehydration (principal); C92.00 Acute myeloblastic leukemia, not having achieved remission; D84.9 Immunodeficiency, unspecified; E87.1 Hypo-osmolality and hyponatremia; Z79.899 Other long term (current) drug therapy; R11.2 Nausea with vomiting, unspecified; T45.1X5A Adverse effect of antineoplastic and immunosuppressive drugs, initial encounter; K59.00 Constipation, unspecified; K21.9 Gastro-esophageal reflux disease without esophagitis; N40.0 Benign prostatic hyperplasia without lower urinary tract symptoms; E87.6 Hypokalemia; E83.42 Hypomagnesemia; Z88.8 Allergy status to other drugs, medicaments and biological substances; Z95.5 Presence of coronary angioplasty implant and graft; Z90.89 Acquired absence of other organs; Z98.49 Cataract extraction status, unspecified eye; Z96.649 Presence of unspecified artificial hip joint; Z86.010 Personal history of colon polyps
CPT/HCPCS: 36415 ×2; 71045; 80053 ×2; 81001; 83605; 83690; 83735 ×2; 85025 ×2; 93005; 96361; 96374; 99285; A9270 ×2; J1644 ×2; J2405 ×2; J3475; J3480 ×5; J3490; J7030 ×3; J7120; 85014; 85018; 85027; 86850; 86900; 86901; 93010; 96365; 96366; 96367; 96372; 96375; 96376; G0378

== ENCOUNTER 2023-08-03 15:43 | Inpatient (IN) | payer MEDICARE, BC ==
[2023-08-03] MEDS: Sodium Chloride 0.9% 1,000 ML IV STA ×2 (18:14→20:47)
[2023-08-03] MEDS: Sodium Chloride 0.9% 10 ML Syringe FLUSH PRN (18:15)
[2023-08-03 18:22] LABS: HEMATOCRIT 25.1 % (42.0-52.0); HEMOGLOBIN 8.6 gm/dl (14.0-18.0); MEAN CORPUSCULAR HEMOGLOBIN 33.1 pg (28.0-32.0); MEAN CORPUSCULAR HGB CONC 34.3 g/dl (32.0-36.0); MEAN CORPUSCULAR VOLUME 96.5 fl (83.0-99.0); MEAN PLATELET VOLUME 10.9 fl (9.4-12.4); PLATELET COUNT,PLT 206 K/mm3 (150-400); WHITE BLOOD CELL COUNT,WBC 3.37 K/mm3 (3.9-11.3)
[2023-08-03 18:46] LABS: LACTIC ACID 0.6 mmol/L (0.4-2.0)
[2023-08-03 18:57] LABS: INR 0.96; PROTHROMBIN TIME 10.3 SECONDS (9.7-12.0)
[2023-08-03 19:01] LABS: A/G RATIO 0.9 (1-2); ALBUMIN 2.9 g/dl (3.4-5.0); ANION GAP 11.4 (5-15); BILIRUBIN TOTAL 0.6 mg/dL (0.2-1.0); BUN/CREATININE RATIO 10.9 (14-18); C-REACTIVE PROTEIN 2.08 mg/dL (<0.30); CALCIUM 8.1 mg/dL (8.5-10.1); CREATININE 1.1 mg/dL (0.7-1.3); EST CRCL DRUG DOSING (CG) 52.68 mL/min; POTASSIUM,K 3.4 mEq/L (3.5-5.1); PROTEIN TOTAL,TP 6.1 g/dl (6.4-8.2)
[2023-08-03 19:18] LABS: BAND PERCENT MAN 0 % (0-10); BASOPHILS PERCENT MAN 1 (0.2-1.2); EOSINOPHILS PERCENT MAN 3 % (0.8-7.0); LYMPHOCYTES % ATYPICAL MANUAL 0 %; LYMPHOCYTES PERCENT MAN 23 % (20-40); MONOCYTES PERCENT MAN 3 % (2-10)
[2023-08-03 19:26] LABS: ANISOCYTOSIS 1+ SLIGHT; OVALOCYTES 1+ SLIGHT; PLATELET COUNT ESTIMATE ADEQUATE; POIKILOCYTOSIS 1+ SLIGHT
[2023-08-03 20:03] LABS: APPEARANCE,URINE CLEAR (Clear); BILIRUBIN,URINE NEGATIVE (Negative); COLOR,URINE LIGHT YELLOW (Yellow); GLUCOSE,URINE NEGATIVE (Negative); KETONES,URINE NEGATIVE (Negative); LEUKOCYTE ESTERASE,URINE NEGATIVE (Negative); NITRITE,URINE NEGATIVE (Negative); OCCULT BLOOD,URINE NEGATIVE (Negative); PROTEIN,URINE NEGATIVE (Negative); UROBILINOGEN,URINE 0.2 (0.2-1.0)
[2023-08-03] MEDS: Piperacillin/Tazobactam 4.5 GM in Sodium Chloride 0.9% 100 ML IV ONE (20:47)
[2023-08-03 20:53] LABS: CORONAVIRUS COVID-19 NAA NEGATIVE (NEGATIVE); INFLUENZA A NAA NEGATIVE (NEGATIVE); RESPIRATORY SYNCYTIAL VIR NAA NEGATIVE (NEGATIVE)
[2023-08-03] MEDS ORDERED: Prochlorperazine 5 MG Tab PO PRN (21:36)
[2023-08-03] MEDS ORDERED: Polyethylene Glycol 3350 Powder 17 GM Packet PO PRN (21:36)
[2023-08-03] MEDS ORDERED: Acetaminophen 325 MG Tab PO PRN (21:42)
[2023-08-03] MEDS ORDERED: LACTATED RINGERS IV ONE (21:42)
[2023-08-03] MEDS ORDERED: Potassium Chloride 20 MEQ Tab.ER PO ONE (21:44)
[2023-08-03] MEDS ORDERED: Enoxaparin 40 MG/0.4 ML Syringe SUBCUT SCH (21:45)
[2023-08-04] MEDS: Potassium Chloride 20 MEQ Tab.ER PO ONE (00:20)
[2023-08-04] MEDS: Enoxaparin 40 MG/0.4 ML Syringe SUBCUT SCH (00:20)
[2023-08-04] MEDS: Lactated Ringers 1,000 ML IV ONE (00:45)
[2023-08-04 06:54] LABS: BASOPHILS PERCENT AUTO 0.7 % (0.0-1.0); EOSINOPHILS ABSOLUTE AUTO 0.1 K/mm3 (0.0-0.4); EOSINOPHILS PERCENT AUTO 1.7 % (0.0-6.0); HEMATOCRIT 24.8 % (42.0-52.0); HEMOGLOBIN 8.4 gm/dl (14.0-18.0); IMMATURE GRAN ABSOLUTE AUTO 0.04 K/mm3 (0.00-0.05); IMMATURE GRAN PERCENT AUTO 1.3 % (0.0-0.4); LYMPHOCYTES ABSOLUTE AUTO 0.7 K/mm3 (1.0-4.8); LYMPHOCYTES PERCENT AUTO 22.4 % (24.0-44.0); MEAN CORPUSCULAR HEMOGLOBIN 32.9 pg (28.0-32.0); MEAN CORPUSCULAR HGB CONC 33.9 g/dl (32.0-36.0); MEAN CORPUSCULAR VOLUME 97.3 fl (83.0-99.0); MEAN PLATELET VOLUME 11.2 fl (9.4-12.4); MONOCYTES ABSOLUTE AUTO 0.2 K/mm3 (0.0-0.8); MONOCYTES PERCENT AUTO 7.6 % (0.0-8.0); NEUTROPHILS PERCENT AUTO 66.3 % (41.0-71.0); PLATELET COUNT,PLT 207 K/mm3 (150-400); RED BLOOD CELL COUNT 2.55 M/mm3 (4.52-5.90); WHITE BLOOD CELL COUNT,WBC 3.03 K/mm3 (3.9-11.3)
[2023-08-04 06:57] LABS: BUN/CREATININE RATIO 8.9 (14-18); CALCIUM 7.9 mg/dL (8.5-10.1); CREATININE 0.9 mg/dL (0.7-1.3); EST CRCL DRUG DOSING (CG) 62.22 mL/min
[2023-08-04] MEDS: Acyclovir 200 MG Cap PO SCH (08:35)
[2023-08-04] MEDS: Allopurinol 300 MG Tab PO SCH (08:35)
[2023-08-04] MEDS ORDERED: Albuterol/Ipratropium 3.0-0.5 MG/3 ML Neb Soln NEB PRN ×2 (09:45→09:51)
[2023-08-04] MEDS: guaiFENesin/Dextromethorphan 100-10 MG/5 ML Soln 5 ML Cup PO ONE (10:36)
[2023-08-04] MEDS: Piperacillin/Tazobactam 4.5 GM in Sodium Chloride 0.9% 100 ML IV SCH (10:37)
[2023-08-04 11:47] LABS: BORDETELLA PARAPERT IS1001 Not Detected (Not Detected)
[2023-08-04] MEDS: guaiFENesin/Dextromethorphan 100-10 MG/5 ML Soln 5 ML Cup PO SCH (13:56)
[2023-08-04] MEDS: Mirtazapine 15 MG Tab PO SCH (20:34)
[2023-08-05 04:54] LABS: BASOPHILS PERCENT AUTO 0.4 % (0.0-1.0); EOSINOPHILS ABSOLUTE AUTO 0.1 K/mm3 (0.0-0.4); EOSINOPHILS PERCENT AUTO 2.6 % (0.0-6.0); HEMATOCRIT 25.1 % (42.0-52.0); HEMOGLOBIN 8.6 gm/dl (14.0-18.0); IMMATURE GRAN ABSOLUTE AUTO 0.03 K/mm3 (0.00-0.05); IMMATURE GRAN PERCENT AUTO 1.1 % (0.0-0.4); LYMPHOCYTES ABSOLUTE AUTO 0.8 K/mm3 (1.0-4.8); LYMPHOCYTES PERCENT AUTO 28.2 % (24.0-44.0); MEAN CORPUSCULAR HEMOGLOBIN 32.8 pg (28.0-32.0); MEAN CORPUSCULAR HGB CONC 34.3 g/dl (32.0-36.0); MEAN CORPUSCULAR VOLUME 95.8 fl (83.0-99.0); MEAN PLATELET VOLUME 10.1 fl (9.4-12.4); MONOCYTES ABSOLUTE AUTO 0.2 K/mm3 (0.0-0.8); MONOCYTES PERCENT AUTO 7.5 % (0.0-8.0); NEUTROPHILS ABSOLUTE AUTO 1.6 K/mm3 (1.8-7.7); NEUTROPHILS PERCENT AUTO 60.2 % (41.0-71.0); PLATELET COUNT,PLT 191 K/mm3 (150-400); RED BLOOD CELL COUNT 2.62 M/mm3 (4.52-5.90); WHITE BLOOD CELL COUNT,WBC 2.66 K/mm3 (3.9-11.3)
[2023-08-05 05:08] LABS: ANION GAP 9.6 (5-15); CALCIUM 8.2 mg/dL (8.5-10.1); POTASSIUM,K 3.6 mEq/L (3.5-5.1)
[2023-08-05] MEDS ORDERED: Non-Formulary Medication 1 Each (Tamsulosin Hcl 0.4 MG Capsule) PO SCH (09:00)
[2023-08-05] MEDS: Metoprolol Succinate 25 MG Tab.ER PO SCH (09:57)
[2023-08-06 05:49] LABS: BASOPHILS PERCENT AUTO 0.3 % (0.0-1.0); EOSINOPHILS ABSOLUTE AUTO 0.1 K/mm3 (0.0-0.4); EOSINOPHILS PERCENT AUTO 3.1 % (0.0-6.0); HEMATOCRIT 25.6 % (42.0-52.0); HEMOGLOBIN 8.7 gm/dl (14.0-18.0); IMMATURE GRAN ABSOLUTE AUTO 0.04 K/mm3 (0.00-0.05); IMMATURE GRAN PERCENT AUTO 1.4 % (0.0-0.4); LYMPHOCYTES ABSOLUTE AUTO 0.8 K/mm3 (1.0-4.8); LYMPHOCYTES PERCENT AUTO 26.1 % (24.0-44.0); MEAN CORPUSCULAR HEMOGLOBIN 32.6 pg (28.0-32.0); MEAN CORPUSCULAR VOLUME 95.9 fl (83.0-99.0); MEAN PLATELET VOLUME 9.6 fl (9.4-12.4); MONOCYTES ABSOLUTE AUTO 0.3 K/mm3 (0.0-0.8); NEUTROPHILS ABSOLUTE AUTO 1.7 K/mm3 (1.8-7.7); NEUTROPHILS PERCENT AUTO 59.1 % (41.0-71.0); PLATELET COUNT,PLT 175 K/mm3 (150-400); RED BLOOD CELL COUNT 2.67 M/mm3 (4.52-5.90); WHITE BLOOD CELL COUNT,WBC 2.91 K/mm3 (3.9-11.3)
[2023-08-06 06:19] LABS: ANION GAP 11.6 (5-15); CALCIUM 8.3 mg/dL (8.5-10.1); POTASSIUM,K 3.6 mEq/L (3.5-5.1)
[2023-08-07 05:45] LABS: BASOPHILS PERCENT AUTO 0.7 % (0.0-1.0); EOSINOPHILS ABSOLUTE AUTO 0.1 K/mm3 (0.0-0.4); EOSINOPHILS PERCENT AUTO 2.7 % (0.0-6.0); HEMOGLOBIN 8.6 gm/dl (14.0-18.0); IMMATURE GRAN ABSOLUTE AUTO 0.03 K/mm3 (0.00-0.05); LYMPHOCYTES PERCENT AUTO 34.4 % (24.0-44.0); MEAN CORPUSCULAR HGB CONC 34.4 g/dl (32.0-36.0); MEAN CORPUSCULAR VOLUME 95.8 fl (83.0-99.0); MEAN PLATELET VOLUME 11.7 fl (9.4-12.4); MONOCYTES ABSOLUTE AUTO 0.3 K/mm3 (0.0-0.8); MONOCYTES PERCENT AUTO 9.5 % (0.0-8.0); NEUTROPHILS ABSOLUTE AUTO 1.5 K/mm3 (1.8-7.7); NEUTROPHILS PERCENT AUTO 51.7 % (41.0-71.0); PLATELET COUNT,PLT 217 K/mm3 (150-400); RED BLOOD CELL COUNT 2.61 M/mm3 (4.52-5.90); WHITE BLOOD CELL COUNT,WBC 2.94 K/mm3 (3.9-11.3)
[2023-08-07 06:03] LABS: CALCIUM 8.4 mg/dL (8.5-10.1); MAGNESIUM 2.2 mg/dL (1.8-2.4)
[2023-08-07 06:11] LABS: SLIDE REVIEW ABNORMAL SMEAR
[2023-08-07 06:30] LABS: ANION GAP 10.5 (5-15); POTASSIUM,K 3.5 mEq/L (3.5-5.1)
== END 2023-08-07 11:58 | disposition home or self-care (01) | DRG 871 ==
LOC: JD.ED 15:43 → JD.MS 20:24
PROVIDERS: ADMIT Student in an Organized Health Care Education/Training Program; ATTEND Student in an Organized Health Care Education/Training Program
DX: A41.9 Sepsis, unspecified organism (principal); A41.89 Other specified sepsis; J18.9 Pneumonia, unspecified organism; J12.9 Viral pneumonia, unspecified; C92.00 Acute myeloblastic leukemia, not having achieved remission; Z45.2 Encounter for adjustment and management of vascular access device; R53.1 Weakness; E11.9 Type 2 diabetes mellitus without complications; E03.9 Hypothyroidism, unspecified; I25.2 Old myocardial infarction; I50.9 Heart failure, unspecified; K21.9 Gastro-esophageal reflux disease without esophagitis; N40.0 Benign prostatic hyperplasia without lower urinary tract symptoms; E87.6 Hypokalemia; Z88.8 Allergy status to other drugs, medicaments and biological substances; Z90.49 Acquired absence of other specified parts of digestive tract; Z86.010 Personal history of colon polyps; Z98.49 Cataract extraction status, unspecified eye
CPT/HCPCS: 0241U; 36415; 71046; 80048; 80053; 81003; 83605; 83735; 85007; 85025; 85027; 85610; 86140; 87040; 87486; 87581; 87633; 94667; 94668; 97110; 97161; 99223; 99232; 99233; 99239; A9270-GY; J1650; J2543; J3490; J7030; J7120

== ENCOUNTER 2023-08-31 19:39 | Emergency (ER) | payer MEDICARE, BC ==
[2023-08-31 20:41] LABS: HEMATOCRIT 28.6 % (42.0-52.0); HEMOGLOBIN 9.6 gm/dl (14.0-18.0); MEAN CORPUSCULAR HEMOGLOBIN 31.2 pg (28.0-32.0); MEAN CORPUSCULAR HGB CONC 33.6 g/dl (32.0-36.0); MEAN CORPUSCULAR VOLUME 92.9 fl (83.0-99.0); MEAN PLATELET VOLUME 10.3 fl (9.4-12.4); PLATELET COUNT,PLT 199 K/mm3 (150-400); RED BLOOD CELL COUNT 3.08 M/mm3 (4.52-5.90); WHITE BLOOD CELL COUNT,WBC 4.36 K/mm3 (3.9-11.3)
[2023-08-31 21:00] LABS: INR 1.01; PROTHROMBIN TIME 10.7 SECONDS (9.7-12.0)
[2023-08-31] MEDS: Sodium Chloride 0.9% 1,000 ML IV ONE (21:02)
[2023-08-31] MEDS: Sodium Chloride 0.9% 10 ML Syringe FLUSH PRN (21:05)
[2023-08-31 21:07] LABS: BAND PERCENT MAN 0 % (0-10); BASOPHILS PERCENT MAN 0 (0.2-1.2); EOSINOPHILS PERCENT MAN 4 % (0.8-7.0); LYMPHOCYTES % ATYPICAL MANUAL 0 %; LYMPHOCYTES PERCENT MAN 31 % (20-40); MONOCYTES PERCENT MAN 3 % (2-10)
[2023-08-31 21:10] LABS: ANISOCYTOSIS 2+; OVALOCYTES 2+ MODERATE; POIKILOCYTOSIS 1+ SLIGHT; POLYCHROMASIA FEW
[2023-08-31 21:12] LABS: PLATELET COUNT ESTIMATE ADEQUATE
[2023-08-31 21:17] LABS: LACTIC ACID 1.1 mmol/L (0.4-2.0)
[2023-08-31 21:23] LABS: A/G RATIO 0.9 (1-2); ALBUMIN 2.9 g/dl (3.4-5.0); ANION GAP 13.5 (5-15); BILIRUBIN TOTAL 0.4 mg/dL (0.2-1.0); C-REACTIVE PROTEIN 2.76 mg/dL (<0.30); CALCIUM 8.5 mg/dL (8.5-10.1); EST CRCL DRUG DOSING (CG) 57.95 mL/min; POTASSIUM,K 3.5 mEq/L (3.5-5.1); PROTEIN TOTAL,TP 6.3 g/dl (6.4-8.2)
[2023-08-31 22:34] LABS: APPEARANCE,URINE CLEAR (Clear); BILIRUBIN,URINE NEGATIVE (Negative); COLOR,URINE YELLOW (Yellow); GLUCOSE,URINE NEGATIVE (Negative); KETONES,URINE NEGATIVE (Negative); LEUKOCYTE ESTERASE,URINE NEGATIVE (Negative); NITRITE,URINE NEGATIVE (Negative); OCCULT BLOOD,URINE NEGATIVE (Negative); PROTEIN,URINE TRACE (Negative); UROBILINOGEN,URINE 0.2 (0.2-1.0)
[2023-08-31 22:49] LABS: BACTERIA,URINE FEW /hpf (FEW); RBC,URINE 0-5 /hpf (0-5); SQUAMOUS EPITHELIAL CELLS,UR 0-5 /hpf (0-5); WBC,URINE 0-5 /hpf (0-5)
[2023-08-31 22:50] LABS: MUCUS,URINE MODERATE /hpf (FEW)
[2023-08-31 23:28] LABS: CORONAVIRUS COVID-19 NAA NEGATIVE (NEGATIVE); INFLUENZA A NAA NEGATIVE (NEGATIVE); RESPIRATORY SYNCYTIAL VIR NAA NEGATIVE (NEGATIVE)
== END 2023-09-01 00:04 | disposition home or self-care (01) ==
LOC: JD.ED 19:39
DX: C92.00 Acute myeloblastic leukemia, not having achieved remission (principal); K21.9 Gastro-esophageal reflux disease without esophagitis; Z88.8 Allergy status to other drugs, medicaments and biological substances; Z95.5 Presence of coronary angioplasty implant and graft; Z87.891 Personal history of nicotine dependence; Z79.899 Other long term (current) drug therapy
CPT/HCPCS: 0241U; 36415; 71046; 71046-26; 80053; 81001; 83605; 85007; 85027; 85610; 86140; 87040; 96360; 99285-25; J3490; J7030

== ENCOUNTER 2023-10-16 21:12 | Inpatient (IN) | payer MEDICARE, BC ==
[2023-10-16 22:01] LABS: HEMATOCRIT 29.1 % (42.0-52.0); HEMOGLOBIN 9.7 gm/dl (14.0-18.0); MEAN CORPUSCULAR HGB CONC 33.3 g/dl (32.0-36.0); MEAN CORPUSCULAR VOLUME 87.1 fl (83.0-99.0); MEAN PLATELET VOLUME 10.7 fl (9.4-12.4); PLATELET COUNT,PLT 222 K/mm3 (150-400); RED BLOOD CELL COUNT 3.34 M/mm3 (4.52-5.90)
[2023-10-16 22:21] LABS: ALBUMIN 3.3 g/dl (3.4-5.0); ANION GAP 12.9 (5-15); BILIRUBIN TOTAL 0.5 mg/dL (0.2-1.0); BUN/CREATININE RATIO 14.5 (14-18); C-REACTIVE PROTEIN 0.71 mg/dL (<0.30); CALCIUM 8.6 mg/dL (8.5-10.1); CREATININE 1.1 mg/dL (0.7-1.3); EST CRCL DRUG DOSING (CG) 51.82 mL/min; POTASSIUM,K 3.9 mEq/L (3.5-5.1); PROTEIN TOTAL,TP 6.6 g/dl (6.4-8.2)
[2023-10-16 22:26] LABS: LACTIC ACID 1.5 mmol/L (0.4-2.0)
[2023-10-16 22:31] LABS: INR 1.01; PROTHROMBIN TIME 10.7 SECONDS (9.7-12.0)
[2023-10-16 22:48] LABS: BAND PERCENT MAN 0 % (0-10); BASOPHILS PERCENT MAN 1 (0.2-1.2); EOSINOPHILS PERCENT MAN 5 % (0.8-7.0); LYMPHOCYTES % ATYPICAL MANUAL 1 %; LYMPHOCYTES PERCENT MAN 66 % (20-40); MONOCYTES PERCENT MAN 7 % (2-10)
[2023-10-16 22:49] LABS: ANISOCYTOSIS 2+ MODERATE; MICROCYTOSIS 1+ SLIGHT; OVALOCYTES 2+ MODERATE; PLATELET COUNT ESTIMATE ADEQUATE; TARGET CELLS 1+ SLIGHT; TEARDROP CELLS 1+ SLIGHT
[2023-10-16] MEDS: Sodium Chloride 0.9% 10 ML Syringe FLUSH PRN (22:49)
[2023-10-16 23:10] LABS: CORONAVIRUS COVID-19 NAA NEGATIVE (NEGATIVE); INFLUENZA A NAA NEGATIVE (NEGATIVE); RESPIRATORY SYNCYTIAL VIR NAA NEGATIVE (NEGATIVE)
[2023-10-16 23:16] LABS: APPEARANCE,URINE CLEAR (Clear); BILIRUBIN,URINE NEGATIVE (Negative); COLOR,URINE YELLOW (Yellow); GLUCOSE,URINE NEGATIVE (Negative); KETONES,URINE NEGATIVE (Negative); LEUKOCYTE ESTERASE,URINE NEGATIVE (Negative); NITRITE,URINE NEGATIVE (Negative); OCCULT BLOOD,URINE NEGATIVE (Negative); PH,URINE 6.5 (5.0-8.0); PROTEIN,URINE NEGATIVE (Negative); UROBILINOGEN,URINE 0.2 (0.2-1.0)
[2023-10-16] MEDS: Sodium Chloride 0.9% 1,000 ML IV ONE (23:25)
[2023-10-16] MEDS: Piperacillin/Tazobactam 4.5 GM in Sodium Chloride 0.9% 100 ML IV ONE (23:26)
[2023-10-16] MEDS: Acetaminophen 325 MG Tab PO ONE (23:28)
[2023-10-17] MEDS ORDERED: Naloxone 0.4 MG/ML SDV IVPUSH PRN (00:01)
[2023-10-17] MEDS ORDERED: Morphine 2 MG/ML SYRINGE IVPUSH PRN (00:01)
[2023-10-17] MEDS ORDERED: Labetalol 100 MG/20 ML MDV IVPUSH PRN (00:02)
[2023-10-17] MEDS: oxyCODONE 5 MG Tab PO PRN (00:46)
[2023-10-17] MEDS: Piperacillin/Tazobactam 4.5 GM in Sodium Chloride 0.9% 100 ML IV SCH (06:58)
[2023-10-17] MEDS ORDERED: Acetaminophen 325 MG Tab PO PRN ×2 (08:40)
[2023-10-17] MEDS ORDERED: Melatonin 3 MG Tab PO PRN (08:46)
[2023-10-17] MEDS ORDERED: Ondansetron 4 MG/2 ML SDV IV PRN (08:46)
[2023-10-17] MEDS ORDERED: Sennosides/Docusate Sodium 50-8.6 MG Tab PO PRN (08:46)
[2023-10-17] MEDS ORDERED: diphenhydrAMINE 25 MG Cap PO PRN (08:50)
[2023-10-17] MEDS ORDERED: Prochlorperazine 5 MG Tab PO PRN (08:50)
[2023-10-17] MEDS: Enoxaparin 40 MG/0.4 ML Syringe SUBCUT SCH (09:32)
[2023-10-17] MEDS: Acyclovir 200 MG Cap PO SCH (09:33)
[2023-10-17] MEDS: Tamsulosin 0.4 MG Cap.ER PO SCH (09:34)
[2023-10-17] MEDS: Allopurinol 300 MG Tab PO SCH (09:34)
[2023-10-17] MEDS: Mirtazapine 15 MG Tab PO SCH (21:23)
[2023-10-18 07:52] LABS: HEMATOCRIT 26.5 % (42.0-52.0); HEMOGLOBIN 8.9 gm/dl (14.0-18.0); MEAN CORPUSCULAR HEMOGLOBIN 29.7 pg (28.0-32.0); MEAN CORPUSCULAR HGB CONC 33.6 g/dl (32.0-36.0); MEAN CORPUSCULAR VOLUME 88.3 fl (83.0-99.0); MEAN PLATELET VOLUME 9.7 fl (9.4-12.4); PLATELET COUNT,PLT 177 K/mm3 (150-400)
[2023-10-18 08:18] LABS: A/G RATIO 0.8 (1-2); ALBUMIN 2.7 g/dl (3.4-5.0); ANION GAP 12.8 (5-15); BILIRUBIN TOTAL 0.9 mg/dL (0.2-1.0); CALCIUM 8.2 mg/dL (8.5-10.1); CREATININE 0.9 mg/dL (0.7-1.3); EST CRCL DRUG DOSING (CG) 61.2 mL/min; MAGNESIUM 1.9 mg/dL (1.8-2.4); PHOSPHORUS 3.7 mg/dL (2.6-4.7); POTASSIUM,K 3.8 mEq/L (3.5-5.1); PROTEIN TOTAL,TP 6.1 g/dl (6.4-8.2)
[2023-10-18 08:23] LABS: WHITE BLOOD CELL COUNT,WBC 1.21 K/mm3 (3.9-11.3)
[2023-10-18 08:43] LABS: BAND PERCENT MAN 2 % (0-10); BASOPHILS PERCENT MAN 1 (0.2-1.2); EOSINOPHILS PERCENT MAN 1 % (0.8-7.0); LYMPHOCYTES % ATYPICAL MANUAL 0 %; LYMPHOCYTES PERCENT MAN 37 % (20-40); MONOCYTES PERCENT MAN 13 % (2-10)
[2023-10-18 08:45] LABS: ANISOCYTOSIS 2+ MODERATE; HYPOCHROMASIA 1+ SLIGHT; OVALOCYTES 2+ MODERATE; PLATELET COUNT ESTIMATE ADEQUATE; POLYCHROMASIA 1+ SLIGHT; TOXIC GRANULATION 1+ SLIGHT
[2023-10-18] MEDS: Sodium Chloride 0.9% 500 ML IV ONE (10:05)
[2023-10-18] MEDS: Benzonatate 100 MG Cap PO PRN (14:34)
[2023-10-18] MEDS: POSACONAZOLE 100 MG PO SCH (14:35)
[2023-10-19 05:35] LABS: HEMATOCRIT 26.9 % (42.0-52.0); HEMOGLOBIN 9.2 gm/dl (14.0-18.0); MEAN CORPUSCULAR HEMOGLOBIN 29.2 pg (28.0-32.0); MEAN CORPUSCULAR HGB CONC 34.2 g/dl (32.0-36.0); MEAN CORPUSCULAR VOLUME 85.4 fl (83.0-99.0); MEAN PLATELET VOLUME 9.9 fl (9.4-12.4); PLATELET COUNT,PLT 181 K/mm3 (150-400); RED BLOOD CELL COUNT 3.15 M/mm3 (4.52-5.90)
[2023-10-19 06:01] LABS: WHITE BLOOD CELL COUNT,WBC 1.86 K/mm3 (3.9-11.3)
[2023-10-19 06:17] LABS: BAND PERCENT MAN 0 % (0-10); BASOPHILS PERCENT MAN 0 (0.2-1.2); EOSINOPHILS PERCENT MAN 0 % (0.8-7.0); LYMPHOCYTES % ATYPICAL MANUAL 0 %; LYMPHOCYTES PERCENT MAN 33 % (20-40); MONOCYTES PERCENT MAN 19 % (2-10)
[2023-10-19 06:22] LABS: ANISOCYTOSIS 2+ MODERATE
[2023-10-19 06:23] LABS: POIKILOCYTOSIS 1+ SLIGHT
[2023-10-19 06:26] LABS: PLATELET COUNT ESTIMATE ADEQUATE
== END 2023-10-19 11:11 | disposition home or self-care (01) | DRG 809 ==
LOC: JD.ED 21:12 → JD.MS 10-17 00:03
PROVIDERS: ADMIT Student in an Organized Health Care Education/Training Program; ATTEND Student in an Organized Health Care Education/Training Program
DX: D70.9 Neutropenia, unspecified (principal); D70.2 Other drug-induced agranulocytosis; C92.00 Acute myeloblastic leukemia, not having achieved remission; D84.9 Immunodeficiency, unspecified; R50.81 Fever presenting with conditions classified elsewhere; K21.9 Gastro-esophageal reflux disease without esophagitis; T45.1X5A Adverse effect of antineoplastic and immunosuppressive drugs, initial encounter; M19.90 Unspecified osteoarthritis, unspecified site; N40.0 Benign prostatic hyperplasia without lower urinary tract symptoms; H54.7 Unspecified visual loss; F17.210 Nicotine dependence, cigarettes, uncomplicated; Z88.8 Allergy status to other drugs, medicaments and biological substances; Z97.3 Presence of spectacles and contact lenses; Z98.49 Cataract extraction status, unspecified eye; Z90.89 Acquired absence of other organs; Z86.010 Personal history of colon polyps; Z96.649 Presence of unspecified artificial hip joint; Z79.899 Other long term (current) drug therapy
CPT/HCPCS: 0241U; 36415; 71045; 71046; 80053; 81003; 83605; 83735; 84100; 85007; 85027; 85610; 86140; 87040; 87641; 94761; 96365; 97161; 99285; 99222; 99232; 99239; A9270-GY; J1650; J2543; J3490; J7030

== ENCOUNTER 2023-10-20 22:45 | Observation (INO) | payer MEDICARE, BC ==
[2023-10-20 23:35] LABS: BASOPHILS PERCENT AUTO 1.2 % (0.0-1.0); EOSINOPHILS PERCENT AUTO 1.2 % (0.0-6.0); HEMATOCRIT 30.5 % (42.0-52.0); LYMPHOCYTES ABSOLUTE AUTO 0.6 K/mm3 (1.0-4.8); LYMPHOCYTES PERCENT AUTO 23.4 % (24.0-44.0); MEAN CORPUSCULAR HEMOGLOBIN 29.4 pg (28.0-32.0); MEAN CORPUSCULAR HGB CONC 32.8 g/dl (32.0-36.0); MEAN CORPUSCULAR VOLUME 89.7 fl (83.0-99.0); MEAN PLATELET VOLUME 10.6 fl (9.4-12.4); MONOCYTES ABSOLUTE AUTO 0.4 K/mm3 (0.0-0.8); MONOCYTES PERCENT AUTO 17.5 % (0.0-8.0); NEUTROPHILS ABSOLUTE AUTO 1.3 K/mm3 (1.8-7.7); NEUTROPHILS PERCENT AUTO 52.7 % (41.0-71.0); PLATELET COUNT,PLT 227 K/mm3 (150-400); WHITE BLOOD CELL COUNT,WBC 2.52 K/mm3 (3.9-11.3)
[2023-10-20 23:37] LABS: CORONAVIRUS COVID-19 NAA NEGATIVE (NEGATIVE); INFLUENZA A NAA NEGATIVE (NEGATIVE); RESPIRATORY SYNCYTIAL VIR NAA NEGATIVE (NEGATIVE)
[2023-10-20 23:57] LABS: A/G RATIO 0.7 (1-2); ANION GAP 11.9 (5-15); BILIRUBIN TOTAL 0.5 mg/dL (0.2-1.0); BUN/CREATININE RATIO 15.5 (14-18); C-REACTIVE PROTEIN 8.26 mg/dL (<0.30); CALCIUM 8.9 mg/dL (8.5-10.1); CREATININE 1.1 mg/dL (0.7-1.3); EST CRCL DRUG DOSING (CG) 55.3 mL/min; POTASSIUM,K 3.9 mEq/L (3.5-5.1); PROTEIN TOTAL,TP 7.1 g/dl (6.4-8.2)
[2023-10-21] MEDS: Acetaminophen 325 MG Tab PO ONE (00:22)
[2023-10-21 01:00] LABS: LACTIC ACID 1.4 mmol/L (0.4-2.0)
[2023-10-21 02:29] LABS: APPEARANCE,URINE CLEAR (Clear); BILIRUBIN,URINE 1+ (Negative); COLOR,URINE YELLOW (Yellow); GLUCOSE,URINE NEGATIVE (Negative); KETONES,URINE NEGATIVE (Negative); LEUKOCYTE ESTERASE,URINE NEGATIVE (Negative); NITRITE,URINE NEGATIVE (Negative); OCCULT BLOOD,URINE NEGATIVE (Negative); PROTEIN,URINE 1+ (Negative)
[2023-10-21 04:06] LABS: EPITHELIAL CELLS,URINE 0-5 /hpf (0-5); RBC,URINE 0-5 /hpf (0-5); WBC,URINE 0-5 /hpf (0-5)
[2023-10-21 04:07] LABS: BACTERIA,URINE FEW /hpf (FEW)
[2023-10-21 04:08] LABS: AMORPHOUS SEDIMENT,URINE FEW /hpf (NOT SEEN); MUCUS,URINE MODERATE /hpf (FEW)
[2023-10-21] MEDS ORDERED: Sodium Chloride 0.9% 10 ML Syringe FLUSH PRN (05:42)
[2023-10-21] MEDS: Sodium Chloride 0.9% 1,000 ML IV SCH (06:29)
[2023-10-21] MEDS ORDERED: Ondansetron 4 MG Tab.DIS PO PRN (08:51)
[2023-10-21] MEDS ORDERED: Morphine 2 MG/ML SYRINGE IVPUSH PRN (08:51)
[2023-10-21] MEDS ORDERED: oxyCODONE 5 MG Tab PO PRN (08:51)
[2023-10-21] MEDS ORDERED: Acetaminophen 325 MG Tab PO PRN (08:51)
[2023-10-21] MEDS: Enoxaparin 40 MG/0.4 ML Syringe SUBCUT SCH (09:23)
[2023-10-21] MEDS: Piperacillin/Tazobactam 4.5 GM in Sodium Chloride 0.9% 100 ML IV ONE (09:23)
[2023-10-21] MEDS ORDERED: POSACONAZOLE 100 MG PO SCH (13:30)
[2023-10-21] MEDS: Acyclovir 200 MG Cap PO SCH (15:46)
[2023-10-21] MEDS: Piperacillin/Tazobactam 4.5 GM in Sodium Chloride 0.9% 100 ML IV SCH (17:14)
[2023-10-21] MEDS: Tamsulosin 0.4 MG Cap.ER PO SCH (17:14)
[2023-10-21] MEDS: Polyethylene Glycol 3350 Powder 17 GM Packet PO SCH (20:02)
[2023-10-21] MEDS ORDERED: Mirtazapine 15 MG Tab PO SCH (21:00)
[2023-10-22 05:34] LABS: BASOPHILS PERCENT AUTO 0.4 % (0.0-1.0); EOSINOPHILS PERCENT AUTO 1.5 % (0.0-6.0); IMMATURE GRAN ABSOLUTE AUTO 0.16 K/mm3 (0.00-0.05); LYMPHOCYTES ABSOLUTE AUTO 0.8 K/mm3 (1.0-4.8); LYMPHOCYTES PERCENT AUTO 29.5 % (24.0-44.0); MEAN CORPUSCULAR HEMOGLOBIN 29.3 pg (28.0-32.0); MEAN CORPUSCULAR HGB CONC 33.2 g/dl (32.0-36.0); MEAN CORPUSCULAR VOLUME 88.3 fl (83.0-99.0); MEAN PLATELET VOLUME 9.2 fl (9.4-12.4); MONOCYTES ABSOLUTE AUTO 0.5 K/mm3 (0.0-0.8); MONOCYTES PERCENT AUTO 19.8 % (0.0-8.0); NEUTROPHILS ABSOLUTE AUTO 1.2 K/mm3 (1.8-7.7); NEUTROPHILS PERCENT AUTO 42.8 % (41.0-71.0); PLATELET COUNT,PLT 157 K/mm3 (150-400); RED BLOOD CELL COUNT 2.83 M/mm3 (4.52-5.90); WHITE BLOOD CELL COUNT,WBC 2.68 K/mm3 (3.9-11.3)
[2023-10-22 05:50] LABS: HEMOGLOBIN 8.3 gm/dl (14.0-18.0)
[2023-10-22 05:57] LABS: A/G RATIO 0.8 (1-2); ALBUMIN 2.4 g/dl (3.4-5.0); ANION GAP 11.2 (5-15); BILIRUBIN TOTAL 0.5 mg/dL (0.2-1.0); BUN/CREATININE RATIO 8.9 (14-18); C-REACTIVE PROTEIN 8.13 mg/dL (<0.30); CALCIUM 8.1 mg/dL (8.5-10.1); CREATININE 0.9 mg/dL (0.7-1.3); EST CRCL DRUG DOSING (CG) 63.33 mL/min; POTASSIUM,K 3.2 mEq/L (3.5-5.1); PROTEIN TOTAL,TP 5.6 g/dl (6.4-8.2)
[2023-10-22 06:21] LABS: SLIDE REVIEW ABNORMAL SMEAR
[2023-10-22] MEDS: Potassium Chloride 20 MEQ Tab.ER PO ONE (08:41)
[2023-10-23 05:32] LABS: BASOPHILS PERCENT AUTO 1.1 % (0.0-1.0); EOSINOPHILS ABSOLUTE AUTO 0.1 K/mm3 (0.0-0.4); EOSINOPHILS PERCENT AUTO 2.7 % (0.0-6.0); HEMATOCRIT 27.1 % (42.0-52.0); HEMOGLOBIN 8.9 gm/dl (14.0-18.0); IMMATURE GRAN PERCENT AUTO 7.6 % (0.0-0.4); LYMPHOCYTES ABSOLUTE AUTO 0.8 K/mm3 (1.0-4.8); LYMPHOCYTES PERCENT AUTO 30.7 % (24.0-44.0); MEAN CORPUSCULAR HGB CONC 32.8 g/dl (32.0-36.0); MEAN CORPUSCULAR VOLUME 88.3 fl (83.0-99.0); MEAN PLATELET VOLUME 11.2 fl (9.4-12.4); MONOCYTES ABSOLUTE AUTO 0.5 K/mm3 (0.0-0.8); MONOCYTES PERCENT AUTO 20.5 % (0.0-8.0); NEUTROPHILS PERCENT AUTO 37.4 % (41.0-71.0); PLATELET COUNT,PLT 217 K/mm3 (150-400); RED BLOOD CELL COUNT 3.07 M/mm3 (4.52-5.90); WHITE BLOOD CELL COUNT,WBC 2.64 K/mm3 (3.9-11.3)
[2023-10-23 05:57] LABS: A/G RATIO 0.7 (1-2); ALBUMIN 2.5 g/dl (3.4-5.0); ANION GAP 14.7 (5-15); BILIRUBIN TOTAL 0.6 mg/dL (0.2-1.0); BUN/CREATININE RATIO 7.8 (14-18); C-REACTIVE PROTEIN 4.67 mg/dL (<0.30); CALCIUM 8.3 mg/dL (8.5-10.1); CREATININE 0.9 mg/dL (0.7-1.3); EST CRCL DRUG DOSING (CG) 63.33 mL/min; POTASSIUM,K 3.7 mEq/L (3.5-5.1); PROTEIN TOTAL,TP 6.1 g/dl (6.4-8.2)
[2023-10-23 06:05] LABS: SLIDE REVIEW ABNORMAL SMEAR
[2023-10-23] MEDS ORDERED: Acetaminophen 325 MG Tab PO SCH (09:00)
== END 2023-10-23 11:31 | disposition home or self-care (01) ==
LOC: JD.ED 22:45 → JD.MS 10-21 02:40 → JD.ED 10-21 03:45
PROVIDERS: ADMIT Family Medicine; ATTEND Family Medicine
DX: D70.9 Neutropenia, unspecified (principal); C92.00 Acute myeloblastic leukemia, not having achieved remission; L89.151 Pressure ulcer of sacral region, stage 1; L89.312 Pressure ulcer of right buttock, stage 2; K21.9 Gastro-esophageal reflux disease without esophagitis; F17.210 Nicotine dependence, cigarettes, uncomplicated; Z20.822 Contact with and (suspected) exposure to COVID-19; Z79.899 Other long term (current) drug therapy; Z88.8 Allergy status to other drugs, medicaments and biological substances
CPT/HCPCS: 0241U; 36415; 71045; 80053; 81001; 83605; 84439; 84443; 85025; 86140; 87040; 96365; 96366; 96372; 96376; 99285; A9270; C1758; G0378; J1650; J2543; J3490; J7030; 99223; 99232; 99239

== ENCOUNTER 2024-04-11 07:44 | Inpatient (IN) | payer MEDICARE, BC ==
[2024-04-11] MEDS ORDERED: Sodium Chloride 0.9% 10 ML Syringe FLUSH PRN (08:01)
[2024-04-11] MEDS: Sodium Chloride 0.9% 1,000 ML IV ONE (08:15)
[2024-04-11 08:26] LABS: BASOPHILS PERCENT AUTO 0.2 % (0.0-1.0); EOSINOPHILS ABSOLUTE AUTO 0.1 K/mm3 (0.0-0.4); EOSINOPHILS PERCENT AUTO 1.1 % (0.0-6.0); HEMATOCRIT 34.1 % (42.0-52.0); HEMOGLOBIN 11.5 gm/dl (14.0-18.0); IMMATURE GRAN ABSOLUTE AUTO 0.06 K/mm3 (0.00-0.05); IMMATURE GRAN PERCENT AUTO 0.7 % (0.0-0.4); LYMPHOCYTES ABSOLUTE AUTO 0.6 K/mm3 (1.0-4.8); LYMPHOCYTES PERCENT AUTO 7.1 % (24.0-44.0); MEAN CORPUSCULAR HEMOGLOBIN 32.2 pg (28.0-32.0); MEAN CORPUSCULAR HGB CONC 33.7 g/dl (32.0-36.0); MEAN CORPUSCULAR VOLUME 95.5 fl (83.0-99.0); MEAN PLATELET VOLUME 10.4 fl (9.4-12.4); MONOCYTES ABSOLUTE AUTO 0.5 K/mm3 (0.0-0.8); MONOCYTES PERCENT AUTO 6.2 % (0.0-8.0); NEUTROPHILS ABSOLUTE AUTO 7.4 K/mm3 (1.8-7.7); NEUTROPHILS PERCENT AUTO 84.7 % (41.0-71.0); PLATELET COUNT,PLT 168 K/mm3 (150-400); RED BLOOD CELL COUNT 3.57 M/mm3 (4.52-5.90); WHITE BLOOD CELL COUNT,WBC 8.72 K/mm3 (3.9-11.3)
[2024-04-11 08:46] LABS: LACTIC ACID 1.7 mmol/L (0.4-2.0)
[2024-04-11 08:47] LABS: ALBUMIN 3.5 g/dl (3.4-5.0); ANION GAP 13.5 (5-15); BILIRUBIN TOTAL 0.9 mg/dL (0.2-1.0); BUN/CREATININE RATIO 7.8 (14-18); CREATININE 0.9 mg/dL (0.7-1.3); EST CRCL DRUG DOSING (CG) 71.85 mL/min; MAGNESIUM 1.8 mg/dL (1.8-2.4); POTASSIUM,K 3.5 mEq/L (3.5-5.1); PROTEIN TOTAL,TP 6.9 g/dl (6.4-8.2)
[2024-04-11] MEDS: Iopamidol 612 MG/ML 100 ML Bottle IVPUSH ONE (09:42)
[2024-04-11] MEDS: Iopamidol 612 MG/ML 30 ML SDV IVPUSH ONE (09:42)
[2024-04-11] MEDS: Sodium Chloride 0.9% 10 ML Syringe FLUSH PRN (09:42)
[2024-04-11 10:19] LABS: APPEARANCE,URINE CLEAR (Clear); BILIRUBIN,URINE NEGATIVE (Negative); COLOR,URINE YELLOW (Yellow); GLUCOSE,URINE NEGATIVE (Negative); KETONES,URINE NEGATIVE (Negative); LEUKOCYTE ESTERASE,URINE NEGATIVE (Negative); NITRITE,URINE NEGATIVE (Negative); OCCULT BLOOD,URINE NEGATIVE (Negative); PROTEIN,URINE NEGATIVE (Negative); UROBILINOGEN,URINE 0.2 (0.2-1.0)
[2024-04-11] MEDS: Piperacillin/Tazobactam 4.5 GM in Sodium Chloride 0.9% 100 ML IV ONE (17:12)
[2024-04-11] MEDS ORDERED: Acetaminophen 325 MG Tab PO PRN (17:16)
[2024-04-11 17:45] LABS: BARBITURATE SCREEN,URINE NEGATIVE (CUTOFF=200); BENZODIAZEPINES SCREEN,URINE NEGATIVE (CUTOFF=150); BUPRENORPHINE SCREEN,URINE NEGATIVE (CUTOFF=10); METHADONE SCREEN, URINE NEGATIVE (CUT0FF=200); METHAMPHETAMINES SCREEN, URINE NEGATIVE (CUTOFF=500); OXYCODONE SCREEN,URINE NEGATIVE (CUT0FF=100); THC SCREEN,URINE 20 NG/ML NEGATIVE (CUTOFF=50)
[2024-04-11 18:02] LABS: AMPHETAMINES SCREEN, URINE NEGATIVE (CUTOFF=500)
[2024-04-11] MEDS: VANCOmycin 1.75 GM/350 ML 1.75 GM in Premix Bag 1 BAG IV ONE (18:04)
[2024-04-11] MEDS: Sodium Chloride 0.9% 1,000 ML IV SCH (18:45)
[2024-04-11 18:49] LABS: URIC ACID 4.6 mg/dL (3.5-7.2)
[2024-04-11 20:01] LABS: BASE EXCESS ARTERIAL 5.4 (-2-2.0); BICARBONATE,ARTERIAL 28.9 meq/L (22.0-26.0)
[2024-04-11] MEDS: Acyclovir 200 MG Cap PO SCH (22:11)
[2024-04-12 04:38] LABS: BASOPHILS PERCENT AUTO 0.3 % (0.0-1.0); EOSINOPHILS ABSOLUTE AUTO 0.2 K/mm3 (0.0-0.4); EOSINOPHILS PERCENT AUTO 2.7 % (0.0-6.0); HEMATOCRIT 32.6 % (42.0-52.0); HEMOGLOBIN 10.9 gm/dl (14.0-18.0); IMMATURE GRAN ABSOLUTE AUTO 0.03 K/mm3 (0.00-0.05); IMMATURE GRAN PERCENT AUTO 0.5 % (0.0-0.4); LYMPHOCYTES ABSOLUTE AUTO 0.7 K/mm3 (1.0-4.8); LYMPHOCYTES PERCENT AUTO 12.2 % (24.0-44.0); MEAN CORPUSCULAR HEMOGLOBIN 32.1 pg (28.0-32.0); MEAN CORPUSCULAR HGB CONC 33.4 g/dl (32.0-36.0); MEAN CORPUSCULAR VOLUME 95.9 fl (83.0-99.0); MEAN PLATELET VOLUME 11.5 fl (9.4-12.4); MONOCYTES ABSOLUTE AUTO 0.5 K/mm3 (0.0-0.8); NEUTROPHILS ABSOLUTE AUTO 4.6 K/mm3 (1.8-7.7); NEUTROPHILS PERCENT AUTO 76.3 % (41.0-71.0); PLATELET COUNT,PLT 164 K/mm3 (150-400); WHITE BLOOD CELL COUNT,WBC 5.99 K/mm3 (3.9-11.3)
[2024-04-12 05:00] LABS: ALBUMIN 3.3 g/dl (3.4-5.0); ANION GAP 13.2 (5-15); BILIRUBIN TOTAL 1.1 mg/dL (0.2-1.0); BUN/CREATININE RATIO 11.4 (14-18); CALCIUM 8.7 mg/dL (8.5-10.1); CREATININE 0.7 mg/dL (0.7-1.3); EST CRCL DRUG DOSING (CG) 86.9 mL/min; POTASSIUM,K 3.2 mEq/L (3.5-5.1); PROTEIN TOTAL,TP 6.6 g/dl (6.4-8.2)
[2024-04-12] MEDS: VANCOmycin 1 GM in Sodium Chloride 0.9% 250 ML IV SCH (05:15)
[2024-04-12] MEDS ORDERED: Piperacillin/Tazobactam 4.5 GM in Sodium Chloride 0.9% 100 ML IV ONE (09:00)
[2024-04-12] MEDS: Potassium Chloride 10 MEQ in Premix Bag 1 BAG IV SCH (09:03)
[2024-04-12] MEDS: Enoxaparin 40 MG/0.4 ML Syringe SUBCUT SCH (09:20)
[2024-04-12] MEDS: Piperacillin/Tazobactam 4.5 GM in Sodium Chloride 0.9% 100 ML IV SCH (09:43)
[2024-04-12] MEDS: Allopurinol 300 MG Tab PO SCH (09:52)
[2024-04-12] MEDS: Tamsulosin 0.4 MG Cap.ER PO SCH (09:52)
[2024-04-12] MEDS: Folic Acid 1 MG Tab PO SCH (09:52)
[2024-04-12] MEDS ORDERED: Morphine 2 MG/ML SYRINGE IVPUSH PRN (12:11)
[2024-04-12] MEDS ORDERED: Naloxone 0.4 MG/ML SDV IVPUSH PRN (12:11)
[2024-04-12] MEDS ORDERED: Piperacillin/Tazobactam 4.5 GM in Sodium Chloride 0.9% 100 ML IV SCH (13:00)
[2024-04-12] MEDS: POSACONAZOLE 100 MG PO SCH (13:59)
[2024-04-12] MEDS: Dextrose 5%-0.45% NaCl 1,000 ML IV SCH (16:47)
[2024-04-13 04:33] LABS: BASOPHILS PERCENT AUTO 0.2 % (0.0-1.0); EOSINOPHILS ABSOLUTE AUTO 0.2 K/mm3 (0.0-0.4); EOSINOPHILS PERCENT AUTO 4.4 % (0.0-6.0); HEMATOCRIT 28.1 % (42.0-52.0); HEMOGLOBIN 9.6 gm/dl (14.0-18.0); IMMATURE GRAN ABSOLUTE AUTO 0.05 K/mm3 (0.00-0.05); IMMATURE GRAN PERCENT AUTO 0.9 % (0.0-0.4); LYMPHOCYTES ABSOLUTE AUTO 0.7 K/mm3 (1.0-4.8); LYMPHOCYTES PERCENT AUTO 12.7 % (24.0-44.0); MEAN CORPUSCULAR HEMOGLOBIN 31.5 pg (28.0-32.0); MEAN CORPUSCULAR HGB CONC 34.2 g/dl (32.0-36.0); MEAN CORPUSCULAR VOLUME 92.1 fl (83.0-99.0); MEAN PLATELET VOLUME 9.2 fl (9.4-12.4); MONOCYTES ABSOLUTE AUTO 0.4 K/mm3 (0.0-0.8); MONOCYTES PERCENT AUTO 8.1 % (0.0-8.0); NEUTROPHILS ABSOLUTE AUTO 3.9 K/mm3 (1.8-7.7); NEUTROPHILS PERCENT AUTO 73.7 % (41.0-71.0); PLATELET COUNT,PLT 137 K/mm3 (150-400); RED BLOOD CELL COUNT 3.05 M/mm3 (4.52-5.90); WHITE BLOOD CELL COUNT,WBC 5.28 K/mm3 (3.9-11.3)
[2024-04-13 05:01] LABS: A/G RATIO 0.9 (1-2); ALBUMIN 2.9 g/dl (3.4-5.0); ANION GAP 13.1 (5-15); BUN/CREATININE RATIO 11.4 (14-18); CALCIUM 8.4 mg/dL (8.5-10.1); CREATININE 0.7 mg/dL (0.7-1.3); EST CRCL DRUG DOSING (CG) 86.9 mL/min; POTASSIUM,K 3.1 mEq/L (3.5-5.1); PROTEIN TOTAL,TP 6.1 g/dl (6.4-8.2)
[2024-04-13] MEDS: Potassium Chloride 20 MEQ Tab.ER PO ONE (10:14)
[2024-04-13] MEDS: Doxycycline Monohydrate 100 MG Cap PO SCH (13:20)
[2024-04-13] MEDS: cefTRIAXone 1 GM Vial IVPUSH SCH (17:44)
[2024-04-14 06:35] LABS: BASOPHILS PERCENT AUTO 0.3 % (0.0-1.0); EOSINOPHILS ABSOLUTE AUTO 0.2 K/mm3 (0.0-0.4); HEMATOCRIT 28.1 % (42.0-52.0); HEMOGLOBIN 9.7 gm/dl (14.0-18.0); IMMATURE GRAN ABSOLUTE AUTO 0.03 K/mm3 (0.00-0.05); IMMATURE GRAN PERCENT AUTO 0.8 % (0.0-0.4); LYMPHOCYTES ABSOLUTE AUTO 0.8 K/mm3 (1.0-4.8); LYMPHOCYTES PERCENT AUTO 22.7 % (24.0-44.0); MEAN CORPUSCULAR HEMOGLOBIN 32.1 pg (28.0-32.0); MEAN CORPUSCULAR HGB CONC 34.5 g/dl (32.0-36.0); MEAN PLATELET VOLUME 11.5 fl (9.4-12.4); MONOCYTES ABSOLUTE AUTO 0.3 K/mm3 (0.0-0.8); MONOCYTES PERCENT AUTO 7.2 % (0.0-8.0); NEUTROPHILS ABSOLUTE AUTO 2.3 K/mm3 (1.8-7.7); PLATELET COUNT,PLT 161 K/mm3 (150-400); RED BLOOD CELL COUNT 3.02 M/mm3 (4.52-5.90); WHITE BLOOD CELL COUNT,WBC 3.62 K/mm3 (3.9-11.3)
[2024-04-14 07:33] LABS: A/G RATIO 0.9 (1-2); ALBUMIN 2.9 g/dl (3.4-5.0); ANION GAP 10.5 (5-15); BILIRUBIN TOTAL 0.5 mg/dL (0.2-1.0); BUN/CREATININE RATIO 13.3 (14-18); CALCIUM 8.8 mg/dL (8.5-10.1); CREATININE 0.9 mg/dL (0.7-1.3); EST CRCL DRUG DOSING (CG) 67.59 mL/min; POTASSIUM,K 3.5 mEq/L (3.5-5.1); PROTEIN TOTAL,TP 6.1 g/dl (6.4-8.2)
== END 2024-04-14 13:22 | disposition home or self-care (01) | DRG 193 ==
LOC: JD.ED 07:44 → JD.MS 17:16
PROVIDERS: ADMIT Family Medicine; ATTEND Internal Medicine
PROC: 4A033R1 Measurement of Arterial Saturation, Peripheral, Percutaneous Approach (ICD-10-PCS; principal; 2024-04-11)
DX: J45.909 Unspecified asthma, uncomplicated (principal); G93.40 Encephalopathy, unspecified; R53.83 Other fatigue; J18.9 Pneumonia, unspecified organism; G92.8 Other toxic encephalopathy; C92.00 Acute myeloblastic leukemia, not having achieved remission; D84.9 Immunodeficiency, unspecified; N40.0 Benign prostatic hyperplasia without lower urinary tract symptoms; K21.9 Gastro-esophageal reflux disease without esophagitis; M19.90 Unspecified osteoarthritis, unspecified site; F15.90 Other stimulant use, unspecified, uncomplicated; H54.7 Unspecified visual loss; Z96.649 Presence of unspecified artificial hip joint; D63.0 Anemia in neoplastic disease; T45.1X5A Adverse effect of antineoplastic and immunosuppressive drugs, initial encounter; R13.10 Dysphagia, unspecified; G31.9 Degenerative disease of nervous system, unspecified; E87.6 Hypokalemia; R53.81 Other malaise; Z88.8 Allergy status to other drugs, medicaments and biological substances; Z79.899 Other long term (current) drug therapy; Z98.49 Cataract extraction status, unspecified eye; Z79.60 Long term (current) use of unspecified immunomodulators and immunosuppressants; Z90.89 Acquired absence of other organs; Z95.5 Presence of coronary angioplasty implant and graft; Z98.890 Other specified postprocedural states; Z90.49 Acquired absence of other specified parts of digestive tract
CPT/HCPCS: 36415; 70551; 71045; 71260; 74177; 80053; 80306; 80307; 81003; 83605; 83690; 83735; 84100; 84484; 84550; 85025; 86140; 86850; 86900; 86901; 87040 ×2; 87428; 93005; 96361; 96374; 99285; C1758; J2543; J7030; Q9967 ×2; 36600; 82803; 82947; 85652; 92610-GN; 93010; 97110-GP; 97161-GP; 97530-GP; 99223; 99232; 99233; A9270-GY; J0696; J1650; J3372; J3480; J3490; J7799

== ENCOUNTER 2024-05-19 16:50 | Inpatient (IN) | payer MEDICARE, BC ==
[2024-05-19] MEDS ORDERED: Sodium Chloride 0.9% 10 ML Syringe FLUSH PRN (17:25)
[2024-05-19 17:49] LABS: APPEARANCE,URINE CLEAR (Clear); BILIRUBIN,URINE NEGATIVE (Negative); COLOR,URINE YELLOW (Yellow); GLUCOSE,URINE NEGATIVE (Negative); KETONES,URINE NEGATIVE (Negative); LEUKOCYTE ESTERASE,URINE NEGATIVE (Negative); NITRITE,URINE NEGATIVE (Negative); OCCULT BLOOD,URINE NEGATIVE (Negative); PROTEIN,URINE NEGATIVE (Negative); UROBILINOGEN,URINE 0.2 (0.2-1.0)
[2024-05-19 18:03] LABS: HEMOGLOBIN 10.9 gm/dl (14.0-18.0); MEAN CORPUSCULAR HEMOGLOBIN 31.9 pg (28.0-32.0); MEAN CORPUSCULAR VOLUME 96.5 fl (83.0-99.0); MEAN PLATELET VOLUME 12.1 fl (9.4-12.4); PLATELET COUNT,PLT 171 K/mm3 (150-400); RED BLOOD CELL COUNT 3.42 M/mm3 (4.52-5.90); WHITE BLOOD CELL COUNT,WBC 6.07 K/mm3 (3.9-11.3)
[2024-05-19 18:18] LABS: INR 0.96; PROTHROMBIN TIME 10.2 SECONDS (9.7-12.0)
[2024-05-19 18:20] LABS: ALBUMIN 3.5 g/dl (3.4-5.0); ANION GAP 9.6 (5-15); BILIRUBIN TOTAL 0.5 mg/dL (0.2-1.0); BUN/CREATININE RATIO 12.2 (14-18); C-REACTIVE PROTEIN 0.61 mg/dL (<0.30); CALCIUM 8.8 mg/dL (8.5-10.1); CREATININE 0.9 mg/dL (0.7-1.3); EST CRCL DRUG DOSING (CG) 61.2 mL/min; POTASSIUM,K 3.6 mEq/L (3.5-5.1)
[2024-05-19 18:22] LABS: LACTIC ACID 1.3 mmol/L (0.4-2.0)
[2024-05-19 18:55] LABS: ANISOCYTOSIS 1+ SLIGHT; BAND PERCENT MAN 0 % (0-10); BASOPHILS PERCENT MAN 1 (0.2-1.2); EOSINOPHILS PERCENT MAN 5 % (0.8-7.0); LYMPHOCYTES % ATYPICAL MANUAL 0 %; LYMPHOCYTES PERCENT MAN 14 % (20-40); MONOCYTES PERCENT MAN 7 % (2-10); POIKILOCYTOSIS 1+ SLIGHT
[2024-05-19 18:56] LABS: MICROCYTOSIS 1+ SLIGHT; OVALOCYTES 1+ SLIGHT; PLATELET COUNT ESTIMATE ADEQUATE; TEARDROP CELLS 1+ SLIGHT
[2024-05-19] MEDS: Ketorolac 15 MG/ML SDV IVPUSH ONE (19:04)
[2024-05-19] MEDS: HYDROmorphone 0.5 MG/0.5 ML Syringe IVPUSH ONE (19:06)
[2024-05-19] MEDS: cefTRIAXone 2 GM Vial IVPUSH ONE (19:09)
[2024-05-19] MEDS: Azithromycin 500 MG in Sodium Chloride 0.9% 250 ML IV ONE (19:09)
[2024-05-19] MEDS: Acetaminophen 325 MG Tab PO ONE (20:39)
[2024-05-20 08:35] LABS: BASOPHILS PERCENT AUTO 0.1 % (0.0-1.0); EOSINOPHILS ABSOLUTE AUTO 0.3 K/mm3 (0.0-0.4); EOSINOPHILS PERCENT AUTO 3.9 % (0.0-6.0); HEMATOCRIT 30.1 % (42.0-52.0); IMMATURE GRAN ABSOLUTE AUTO 0.04 K/mm3 (0.00-0.05); IMMATURE GRAN PERCENT AUTO 0.5 % (0.0-0.4); LYMPHOCYTES ABSOLUTE AUTO 0.8 K/mm3 (1.0-4.8); LYMPHOCYTES PERCENT AUTO 9.5 % (24.0-44.0); MEAN CORPUSCULAR HEMOGLOBIN 31.9 pg (28.0-32.0); MEAN CORPUSCULAR HGB CONC 33.2 g/dl (32.0-36.0); MEAN CORPUSCULAR VOLUME 96.2 fl (83.0-99.0); MEAN PLATELET VOLUME 10.3 fl (9.4-12.4); MONOCYTES ABSOLUTE AUTO 0.6 K/mm3 (0.0-0.8); MONOCYTES PERCENT AUTO 7.8 % (0.0-8.0); NEUTROPHILS ABSOLUTE AUTO 6.4 K/mm3 (1.8-7.7); NEUTROPHILS PERCENT AUTO 78.2 % (41.0-71.0); PLATELET COUNT,PLT 137 K/mm3 (150-400); RED BLOOD CELL COUNT 3.13 M/mm3 (4.52-5.90); WHITE BLOOD CELL COUNT,WBC 8.12 K/mm3 (3.9-11.3)
[2024-05-20 09:08] LABS: A/G RATIO 0.9 (1-2); ANION GAP 11.4 (5-15); BILIRUBIN TOTAL 0.8 mg/dL (0.2-1.0); BUN/CREATININE RATIO 12.2 (14-18); C-REACTIVE PROTEIN 6.84 mg/dL (<0.30); CREATININE 0.9 mg/dL (0.7-1.3); EST CRCL DRUG DOSING (CG) 67.59 mL/min; MAGNESIUM 1.7 mg/dL (1.8-2.4); PHOSPHORUS 3.2 mg/dL (2.6-4.7); POTASSIUM,K 3.4 mEq/L (3.5-5.1); PROTEIN TOTAL,TP 6.3 g/dl (6.4-8.2)
[2024-05-20 09:15] LABS: CALCIUM 8.4 mg/dL (8.5-10.1)
[2024-05-20] MEDS: Potassium Chloride 20 MEQ Tab.ER PO ONE (10:58)
[2024-05-20] MEDS: Magnesium Sulf/Wat 4 GM/50 mL 4 GM in Premix Bag 1 BAG IV ONE (10:58)
[2024-05-20] MEDS ORDERED: Melatonin 3 MG Tab PO PRN (11:11)
[2024-05-20] MEDS ORDERED: Albuterol/Ipratropium 3.0-0.5 MG/3 ML Neb Soln NEB PRN (11:11)
[2024-05-20] MEDS ORDERED: Ondansetron 4 MG/2 ML SDV IV PRN (11:11)
[2024-05-20] MEDS ORDERED: Sennosides/Docusate Sodium 50-8.6 MG Tab PO PRN (11:11)
[2024-05-20] MEDS ORDERED: Prochlorperazine 5 MG Tab PO PRN (11:17)
[2024-05-20] MEDS: Allopurinol 300 MG Tab PO SCH (11:38)
[2024-05-20] MEDS: Folic Acid 1 MG Tab PO SCH (11:38)
[2024-05-20] MEDS: Enoxaparin 40 MG/0.4 ML Syringe SUBCUT SCH (11:38)
[2024-05-20] MEDS: Tamsulosin 0.4 MG Cap.ER PO SCH (11:38)
[2024-05-20] MEDS: POSACONAZOLE 100 MG PO SCH (14:18)
[2024-05-20] MEDS: Sodium Chloride 3% Inhalation Soln 4 ML Neb NEB SCH (14:59)
[2024-05-20] MEDS: cefTRIAXone 2 GM Vial IVPUSH SCH (17:24)
[2024-05-20] MEDS: Acetaminophen 325 MG Tab PO PRN (17:41)
[2024-05-20] MEDS: Azithromycin 500 MG in Sodium Chloride 0.9% 250 ML IV SCH (17:50)
[2024-05-20] MEDS: OLANZapine 5 MG Tab PO SCH (21:38)
[2024-05-20] MEDS: Acyclovir 200 MG Cap PO SCH (21:38)
[2024-05-21 05:26] LABS: BASOPHILS PERCENT AUTO 0.2 % (0.0-1.0); EOSINOPHILS ABSOLUTE AUTO 0.4 K/mm3 (0.0-0.4); EOSINOPHILS PERCENT AUTO 6.2 % (0.0-6.0); HEMATOCRIT 27.9 % (42.0-52.0); HEMOGLOBIN 9.3 gm/dl (14.0-18.0); IMMATURE GRAN ABSOLUTE AUTO 0.04 K/mm3 (0.00-0.05); IMMATURE GRAN PERCENT AUTO 0.7 % (0.0-0.4); LYMPHOCYTES ABSOLUTE AUTO 0.8 K/mm3 (1.0-4.8); LYMPHOCYTES PERCENT AUTO 14.5 % (24.0-44.0); MEAN CORPUSCULAR HEMOGLOBIN 32.1 pg (28.0-32.0); MEAN CORPUSCULAR HGB CONC 33.3 g/dl (32.0-36.0); MEAN CORPUSCULAR VOLUME 96.2 fl (83.0-99.0); MONOCYTES ABSOLUTE AUTO 0.5 K/mm3 (0.0-0.8); MONOCYTES PERCENT AUTO 9.3 % (0.0-8.0); NEUTROPHILS PERCENT AUTO 69.1 % (41.0-71.0); PLATELET COUNT,PLT 135 K/mm3 (150-400); WHITE BLOOD CELL COUNT,WBC 5.79 K/mm3 (3.9-11.3)
[2024-05-21 05:37] LABS: A/G RATIO 0.9 (1-2); ALBUMIN 2.9 g/dl (3.4-5.0); ANION GAP 9.7 (5-15); BILIRUBIN TOTAL 0.5 mg/dL (0.2-1.0); BUN/CREATININE RATIO 11.3 (14-18); C-REACTIVE PROTEIN 10.13 mg/dL (<0.30); CALCIUM 8.6 mg/dL (8.5-10.1); CREATININE 0.8 mg/dL (0.7-1.3); EST CRCL DRUG DOSING (CG) 73.66 mL/min; MAGNESIUM 2.5 mg/dL (1.8-2.4); PHOSPHORUS 3.2 mg/dL (2.6-4.7); POTASSIUM,K 3.7 mEq/L (3.5-5.1)
[2024-05-21] MEDS: Cyanocobalamin (Vitamin B12) 1,000 MCG Tab PO SCH (08:04)
[2024-05-21] MEDS: Sodium Chloride 0.9% 1,000 ML IV SCH (11:33)
[2024-05-22 04:49] LABS: BASOPHILS PERCENT AUTO 0.3 % (0.0-1.0); EOSINOPHILS ABSOLUTE AUTO 0.4 K/mm3 (0.0-0.4); EOSINOPHILS PERCENT AUTO 9.5 % (0.0-6.0); HEMATOCRIT 26.7 % (42.0-52.0); HEMOGLOBIN 8.8 gm/dl (14.0-18.0); IMMATURE GRAN ABSOLUTE AUTO 0.03 K/mm3 (0.00-0.05); IMMATURE GRAN PERCENT AUTO 0.8 % (0.0-0.4); LYMPHOCYTES ABSOLUTE AUTO 0.9 K/mm3 (1.0-4.8); LYMPHOCYTES PERCENT AUTO 23.1 % (24.0-44.0); MEAN CORPUSCULAR HEMOGLOBIN 31.5 pg (28.0-32.0); MEAN CORPUSCULAR VOLUME 95.7 fl (83.0-99.0); MEAN PLATELET VOLUME 11.8 fl (9.4-12.4); MONOCYTES ABSOLUTE AUTO 0.4 K/mm3 (0.0-0.8); MONOCYTES PERCENT AUTO 11.4 % (0.0-8.0); NEUTROPHILS PERCENT AUTO 54.9 % (41.0-71.0); PLATELET COUNT,PLT 137 K/mm3 (150-400); RED BLOOD CELL COUNT 2.79 M/mm3 (4.52-5.90); WHITE BLOOD CELL COUNT,WBC 3.68 K/mm3 (3.9-11.3)
[2024-05-22] MEDS: guaiFENesin 600 MG Tab.ER PO SCH (11:26)
== END 2024-05-22 13:44 | disposition home or self-care (01) | DRG 194 ==
LOC: JD.ED 16:50 → JD.MS 18:56
PROVIDERS: ADMIT Student in an Organized Health Care Education/Training Program; ATTEND Family Medicine
DX: J18.9 Pneumonia, unspecified organism (principal); C92.00 Acute myeloblastic leukemia, not having achieved remission; J98.11 Atelectasis; I45.5 Other specified heart block; I44.0 Atrioventricular block, first degree; R53.81 Other malaise; N40.0 Benign prostatic hyperplasia without lower urinary tract symptoms; E83.42 Hypomagnesemia; E86.0 Dehydration; E87.6 Hypokalemia; H54.7 Unspecified visual loss; K21.9 Gastro-esophageal reflux disease without esophagitis; M19.90 Unspecified osteoarthritis, unspecified site; Z86.16 Personal history of COVID-19; Z98.49 Cataract extraction status, unspecified eye; Z79.899 Other long term (current) drug therapy; Z90.49 Acquired absence of other specified parts of digestive tract; Z95.5 Presence of coronary angioplasty implant and graft; Z98.890 Other specified postprocedural states; Z96.649 Presence of unspecified artificial hip joint; Z88.8 Allergy status to other drugs, medicaments and biological substances; Z87.891 Personal history of nicotine dependence
CPT/HCPCS: 36415; 71046; 71046-26; 80053; 81003; 83605; 83735; 84100; 85007; 85025; 85027; 85610; 86140; 87040; 87428-QW; 93005; 93010; 94640; 94667; 94668; 94761; 97116-GP; 97161-GP; 97166-GO; 97530-GP; 97535-GO; 99284; A9270-GY; J0456; J0696; J1650; J1885; J3475; J3490; J7030

== ENCOUNTER 2024-08-28 19:13 | Inpatient (IN) | payer MEDICARE, BC ==
[2024-08-28] MEDS ORDERED: Sodium Chloride 0.9% 10 ML Syringe FLUSH PRN (19:48)
[2024-08-28 20:22] LABS: MEAN PLATELET VOLUME 11.2 fl (9.4-12.4); NRBC ABSOLUTE 0.00 (0.00-0.02); NRBC PERCENT 0.0 % (0.0-0.2); PLATELET COUNT,PLT 80 K/mm3 (150-400); RED BLOOD CELL COUNT 1.85 M/mm3 (4.52-5.90)
[2024-08-28 20:26] LABS: WHITE BLOOD CELL COUNT,WBC 0.80 K/mm3 (3.9-11.3)
[2024-08-28 20:36] LABS: INR 1.0
[2024-08-28 20:39] LABS: A/G RATIO 0.9 (1-2); ALANINE AMINOTRANSFERASE,ALT 13.0 U/L (16-63); ASPARTATE AMNIOTRANSFERASE,AST 11.0 U/L (15-37); BILIRUBIN TOTAL 0.4 mg/dL (0.2-1.0); BLOOD UREA NITROGEN,BUN 19.0 mg/dL (7-18); CARBON DIOXIDE,CO2 25.0 mEq/L (21-32); CHLORIDE,CL 103.0 mEq/L (98-107); CREATININE 0.9 mg/dL (0.7-1.3); EST CRCL DRUG DOSING (CG) 61.2 mL/min; ESTIMATED GFR 86.0 mL/min (>60); GLUCOSE RANDOM 125.0 mg/dL (70-99); POTASSIUM,K 3.3 mEq/L (3.5-5.1); PROTEIN TOTAL,TP 5.7 g/dl (6.4-8.2); SODIUM,NA 138.0 mEq/L (136-145)
[2024-08-28 20:45] LABS: LACTIC ACID 1.2 mmol/L (0.4-2.0)
[2024-08-28 21:28] LABS: BAND PERCENT MAN 0 % (0-10); BASOPHILS PERCENT MAN 0 (0.2-1.2); EOSINOPHILS PERCENT MAN 0 % (0.8-7.0); LYMPHOCYTES % ATYPICAL MANUAL 0 %; LYMPHOCYTES PERCENT MAN 78 % (20-40); MONOCYTES PERCENT MAN 6 % (2-10)
[2024-08-28 21:36] LABS: PLATELET COUNT ESTIMATE DECREASED
[2024-08-29 02:24] LABS: APPEARANCE,URINE CLEAR (Clear); GLUCOSE,URINE NEGATIVE (Negative); OCCULT BLOOD,URINE NEGATIVE (Negative)
[2024-08-29 05:55] LABS: MEAN PLATELET VOLUME 10.9 fl (9.4-12.4); NRBC ABSOLUTE 0.00 (0.00-0.02); NRBC PERCENT 0.0 % (0.0-0.2); PLATELET COUNT,PLT 72 K/mm3 (150-400); RED BLOOD CELL COUNT 2.70 M/mm3 (4.52-5.90)
[2024-08-29 06:04] LABS: WHITE BLOOD CELL COUNT,WBC 0.58 K/mm3 (3.9-11.3)
[2024-08-29 07:08] LABS: BAND PERCENT MAN 0 % (0-10); BASOPHILS PERCENT MAN 4 (0.2-1.2); EOSINOPHILS PERCENT MAN 6 % (0.8-7.0); LYMPHOCYTES % ATYPICAL MANUAL 3 %; LYMPHOCYTES PERCENT MAN 68 % (20-40); MONOCYTES PERCENT MAN 10 % (2-10)
[2024-08-29 07:15] LABS: PLATELET COUNT ESTIMATE DECREASED
[2024-08-30 04:22] LABS: BASOPHILS ABSOLUTE AUTO 0.0 K/mm3 (0.0-0.2); BASOPHILS PERCENT AUTO 1.1 % (0.0-1.0); EOSINOPHILS ABSOLUTE AUTO 0.1 K/mm3 (0.0-0.4); EOSINOPHILS PERCENT AUTO 6.5 % (0.0-6.0); IMMATURE GRAN ABSOLUTE AUTO 0.00 K/mm3 (0.00-0.05); IMMATURE GRAN PERCENT AUTO 0.0 % (0.0-0.4); LYMPHOCYTES ABSOLUTE AUTO 0.7 K/mm3 (1.0-4.8); LYMPHOCYTES PERCENT AUTO 76.3 % (24.0-44.0); MEAN PLATELET VOLUME 11.5 fl (9.4-12.4); MONOCYTES ABSOLUTE AUTO 0.1 K/mm3 (0.0-0.8); MONOCYTES PERCENT AUTO 6.5 % (0.0-8.0); NEUTROPHILS ABSOLUTE AUTO 0.1 K/mm3 (1.8-7.7); NEUTROPHILS PERCENT AUTO 9.6 % (41.0-71.0); NRBC ABSOLUTE 0.02 (0.00-0.02); NRBC PERCENT 2.2 % (0.0-0.2); PLATELET COUNT,PLT 67 K/mm3 (150-400); RED BLOOD CELL COUNT 2.63 M/mm3 (4.52-5.90)
[2024-08-30 04:56] LABS: A/G RATIO 0.9 (1-2); ALANINE AMINOTRANSFERASE,ALT 14.0 U/L (16-63); ASPARTATE AMNIOTRANSFERASE,AST 11.0 U/L (15-37); BILIRUBIN TOTAL 0.5 mg/dL (0.2-1.0); BLOOD UREA NITROGEN,BUN 10.0 mg/dL (7-18); CARBON DIOXIDE,CO2 28.0 mEq/L (21-32); CHLORIDE,CL 108.0 mEq/L (98-107); CREATININE 0.8 mg/dL (0.7-1.3); EST CRCL DRUG DOSING (CG) 68.85 mL/min; ESTIMATED GFR 89.0 mL/min (>60); GLUCOSE RANDOM 108.0 mg/dL (70-99); PHOSPHORUS 3.8 mg/dL (2.6-4.7); POTASSIUM,K 3.4 mEq/L (3.5-5.1); PROTEIN TOTAL,TP 5.6 g/dl (6.4-8.2); SODIUM,NA 142.0 mEq/L (136-145)
[2024-08-30 05:59] LABS: WHITE BLOOD CELL COUNT,WBC 0.93 K/mm3 (3.9-11.3)
[2024-08-30] MEDS: Potassium Chloride 20 MEQ Tab.ER PO SCH (09:32)
[2024-08-31 04:30] LABS: BASOPHILS ABSOLUTE AUTO 0.0 K/mm3 (0.0-0.2); BASOPHILS PERCENT AUTO 0.0 % (0.0-1.0); EOSINOPHILS ABSOLUTE AUTO 0.1 K/mm3 (0.0-0.4); EOSINOPHILS PERCENT AUTO 5.2 % (0.0-6.0); IMMATURE GRAN ABSOLUTE AUTO 0.00 K/mm3 (0.00-0.05); IMMATURE GRAN PERCENT AUTO 0.0 % (0.0-0.4); LYMPHOCYTES ABSOLUTE AUTO 0.7 K/mm3 (1.0-4.8); LYMPHOCYTES PERCENT AUTO 71.9 % (24.0-44.0); MEAN PLATELET VOLUME 10.2 fl (9.4-12.4); MONOCYTES ABSOLUTE AUTO 0.1 K/mm3 (0.0-0.8); MONOCYTES PERCENT AUTO 8.3 % (0.0-8.0); NEUTROPHILS ABSOLUTE AUTO 0.1 K/mm3 (1.8-7.7); NEUTROPHILS PERCENT AUTO 14.6 % (41.0-71.0); NRBC ABSOLUTE 0.00 (0.00-0.02); NRBC PERCENT 0.0 % (0.0-0.2); PLATELET COUNT,PLT 75 K/mm3 (150-400); RED BLOOD CELL COUNT 2.90 M/mm3 (4.52-5.90)
[2024-08-31 05:04] LABS: WHITE BLOOD CELL COUNT,WBC 0.96 K/mm3 (3.9-11.3)
[2024-08-31 05:31] LABS: BLOOD UREA NITROGEN,BUN 9.0 mg/dL (7-18); CARBON DIOXIDE,CO2 27.0 mEq/L (21-32); CHLORIDE,CL 105.0 mEq/L (98-107); CREATININE 0.7 mg/dL (0.7-1.3); EST CRCL DRUG DOSING (CG) 78.69 mL/min; ESTIMATED GFR 93.0 mL/min (>60); GLUCOSE RANDOM 97.0 mg/dL (70-99); POTASSIUM,K 4.1 mEq/L (3.5-5.1); SODIUM,NA 139.0 mEq/L (136-145)
[2024-09-01 05:50] LABS: BASOPHILS ABSOLUTE AUTO 0.0 K/mm3 (0.0-0.2); BASOPHILS PERCENT AUTO 0.0 % (0.0-1.0); EOSINOPHILS ABSOLUTE AUTO 0.1 K/mm3 (0.0-0.4); EOSINOPHILS PERCENT AUTO 3.6 % (0.0-6.0); IMMATURE GRAN ABSOLUTE AUTO 0.01 K/mm3 (0.00-0.05); IMMATURE GRAN PERCENT AUTO 0.7 % (0.0-0.4); LYMPHOCYTES ABSOLUTE AUTO 0.8 K/mm3 (1.0-4.8); LYMPHOCYTES PERCENT AUTO 56.2 % (24.0-44.0); MEAN PLATELET VOLUME 10.1 fl (9.4-12.4); MONOCYTES ABSOLUTE AUTO 0.2 K/mm3 (0.0-0.8); MONOCYTES PERCENT AUTO 13.1 % (0.0-8.0); NEUTROPHILS ABSOLUTE AUTO 0.4 K/mm3 (1.8-7.7); NEUTROPHILS PERCENT AUTO 26.4 % (41.0-71.0); NRBC ABSOLUTE 0.00 (0.00-0.02); NRBC PERCENT 0.0 % (0.0-0.2); PLATELET COUNT,PLT 77 K/mm3 (150-400); RED BLOOD CELL COUNT 2.83 M/mm3 (4.52-5.90)
[2024-09-01 05:51] LABS: WHITE BLOOD CELL COUNT,WBC 1.37 K/mm3 (3.9-11.3)
[2024-09-01 06:10] LABS: BLOOD UREA NITROGEN,BUN 13.0 mg/dL (7-18); CARBON DIOXIDE,CO2 28.0 mEq/L (21-32); CHLORIDE,CL 103.0 mEq/L (98-107); CREATININE 0.8 mg/dL (0.7-1.3); EST CRCL DRUG DOSING (CG) 68.85 mL/min; ESTIMATED GFR 89.0 mL/min (>60); GLUCOSE RANDOM 103.0 mg/dL (70-99); POTASSIUM,K 4.0 mEq/L (3.5-5.1); SODIUM,NA 139.0 mEq/L (136-145)
[2024-09-02 05:47] LABS: BASOPHILS ABSOLUTE AUTO 0.0 K/mm3 (0.0-0.2); BASOPHILS PERCENT AUTO 0.0 % (0.0-1.0); EOSINOPHILS ABSOLUTE AUTO 0.0 K/mm3 (0.0-0.4); EOSINOPHILS PERCENT AUTO 3.1 % (0.0-6.0); IMMATURE GRAN ABSOLUTE AUTO 0.01 K/mm3 (0.00-0.05); IMMATURE GRAN PERCENT AUTO 0.8 % (0.0-0.4); LYMPHOCYTES ABSOLUTE AUTO 0.8 K/mm3 (1.0-4.8); LYMPHOCYTES PERCENT AUTO 61.2 % (24.0-44.0); MEAN PLATELET VOLUME 10.8 fl (9.4-12.4); MONOCYTES ABSOLUTE AUTO 0.2 K/mm3 (0.0-0.8); MONOCYTES PERCENT AUTO 14.0 % (0.0-8.0); NEUTROPHILS ABSOLUTE AUTO 0.3 K/mm3 (1.8-7.7); NEUTROPHILS PERCENT AUTO 20.9 % (41.0-71.0); NRBC ABSOLUTE 0.00 (0.00-0.02); NRBC PERCENT 0.0 % (0.0-0.2); PLATELET COUNT,PLT 67 K/mm3 (150-400); RED BLOOD CELL COUNT 2.66 M/mm3 (4.52-5.90)
[2024-09-02 05:49] LABS: WHITE BLOOD CELL COUNT,WBC 1.29 K/mm3 (3.9-11.3)
[2024-09-03 06:00] LABS: BASOPHILS ABSOLUTE AUTO 0.0 K/mm3 (0.0-0.2); BASOPHILS PERCENT AUTO 0.0 % (0.0-1.0); EOSINOPHILS ABSOLUTE AUTO 0.0 K/mm3 (0.0-0.4); EOSINOPHILS PERCENT AUTO 2.6 % (0.0-6.0); IMMATURE GRAN ABSOLUTE AUTO 0.02 K/mm3 (0.00-0.05); IMMATURE GRAN PERCENT AUTO 1.3 % (0.0-0.4); LYMPHOCYTES ABSOLUTE AUTO 0.9 K/mm3 (1.0-4.8); LYMPHOCYTES PERCENT AUTO 56.8 % (24.0-44.0); MEAN PLATELET VOLUME 10.7 fl (9.4-12.4); MONOCYTES ABSOLUTE AUTO 0.2 K/mm3 (0.0-0.8); MONOCYTES PERCENT AUTO 15.5 % (0.0-8.0); NEUTROPHILS ABSOLUTE AUTO 0.4 K/mm3 (1.8-7.7); NEUTROPHILS PERCENT AUTO 23.8 % (41.0-71.0); NRBC ABSOLUTE 0.00 (0.00-0.02); NRBC PERCENT 0.0 % (0.0-0.2); PLATELET COUNT,PLT 70 K/mm3 (150-400); RED BLOOD CELL COUNT 2.61 M/mm3 (4.52-5.90)
[2024-09-03 06:03] LABS: WHITE BLOOD CELL COUNT,WBC 1.55 K/mm3 (3.9-11.3)
== END 2024-09-03 14:35 | disposition home health service (06) | DRG 809 ==
LOC: JD.ED 19:13 → JD.MS 21:17
PROVIDERS: ADMIT Internal Medicine; ATTEND Family Medicine
PROC: 3E03329 Introduction of Other Anti-infective into Peripheral Vein, Percutaneous Approach (ICD-10-PCS; principal; 2024-08-28)
PROC: 30233N1 Transfusion of Nonautologous Red Blood Cells into Peripheral Vein, Percutaneous Approach (ICD-10-PCS; 2024-08-28)
DX: I10 Essential (primary) hypertension (principal); D70.9 Neutropenia, unspecified; C92.00 Acute myeloblastic leukemia, not having achieved remission; D84.9 Immunodeficiency, unspecified; R78.81 Bacteremia; D61.810 Antineoplastic chemotherapy induced pancytopenia; Z66 Do not resuscitate; R53.1 Weakness; R50.81 Fever presenting with conditions classified elsewhere; H54.7 Unspecified visual loss; K21.9 Gastro-esophageal reflux disease without esophagitis; N40.0 Benign prostatic hyperplasia without lower urinary tract symptoms; M19.90 Unspecified osteoarthritis, unspecified site; Z96.649 Presence of unspecified artificial hip joint; F17.200 Nicotine dependence, unspecified, uncomplicated; E87.6 Hypokalemia; D63.0 Anemia in neoplastic disease; B96.89 Other specified bacterial agents as the cause of diseases classified elsewhere; T45.1X5A Adverse effect of antineoplastic and immunosuppressive drugs, initial encounter; Z88.8 Allergy status to other drugs, medicaments and biological substances; Z79.899 Other long term (current) drug therapy; Z95.5 Presence of coronary angioplasty implant and graft; Z95.828 Presence of other vascular implants and grafts; Z86.0100 Personal history of colon polyps, unspecified; Z86.16 Personal history of COVID-19; Z98.49 Cataract extraction status, unspecified eye; Z90.89 Acquired absence of other organs; Z90.49 Acquired absence of other specified parts of digestive tract; Y92.89 Other specified places as the place of occurrence of the external cause
CPT/HCPCS: 36415; 71045; 80053; 83605; 85007; 85027; 85610; 86140; 86850; 86900; 86901; 86922; 87040 ×2; 87154; 93005; 96361; 96374; 99285; J0696; J7030; 36430; 80048; 81003; 83735; 84100; 85025; 94761; 97116-GP; 97161-GP; 97166-GO; 97530-GP; 97535-GO; 99222; 99232; 99239; A9270-GY; J1642; J1650; J2543; J7050; P9016

== ENCOUNTER 2024-10-14 19:39 | Inpatient (IN) | payer MEDICARE, BC ==
[2024-10-14] MEDS ORDERED: Sodium Chloride 0.9% 10 ML Syringe FLUSH PRN (20:11)
[2024-10-14 20:31] LABS: BASOPHILS ABSOLUTE AUTO 0.0 K/mm3 (0.0-0.2); BASOPHILS PERCENT AUTO 2.2 % (0.0-1.0); EOSINOPHILS ABSOLUTE AUTO 0.0 K/mm3 (0.0-0.4); EOSINOPHILS PERCENT AUTO 4.4 % (0.0-6.0); IMMATURE GRAN ABSOLUTE AUTO 0.00 K/mm3 (0.00-0.05); IMMATURE GRAN PERCENT AUTO 0.0 % (0.0-0.4); LYMPHOCYTES ABSOLUTE AUTO 0.7 K/mm3 (1.0-4.8); LYMPHOCYTES PERCENT AUTO 77.8 % (24.0-44.0); MEAN PLATELET VOLUME 10.8 fl (9.4-12.4); MONOCYTES ABSOLUTE AUTO 0.0 K/mm3 (0.0-0.8); MONOCYTES PERCENT AUTO 4.4 % (0.0-8.0); NEUTROPHILS ABSOLUTE AUTO 0.1 K/mm3 (1.8-7.7); NEUTROPHILS PERCENT AUTO 11.2 % (41.0-71.0); NRBC ABSOLUTE 0.00 (0.00-0.02); NRBC PERCENT 0.0 % (0.0-0.2); PLATELET COUNT,PLT 149 K/mm3 (150-400); RED BLOOD CELL COUNT 2.33 M/mm3 (4.52-5.90)
[2024-10-14 20:36] LABS: WHITE BLOOD CELL COUNT,WBC 0.90 K/mm3 (3.9-11.3)
[2024-10-14 20:58] LABS: LACTIC ACID 0.7 mmol/L (0.4-2.0)
[2024-10-14 21:02] LABS: A/G RATIO 1.0 (1-2); ALANINE AMINOTRANSFERASE,ALT 20.0 U/L (16-63); ASPARTATE AMNIOTRANSFERASE,AST 13.0 U/L (15-37); BILIRUBIN TOTAL 0.5 mg/dL (0.2-1.0); BLOOD UREA NITROGEN,BUN 16.0 mg/dL (7-18); CARBON DIOXIDE,CO2 29.0 mEq/L (21-32); CHLORIDE,CL 102.0 mEq/L (98-107); CREATININE 0.8 mg/dL (0.7-1.3); EST CRCL DRUG DOSING (CG) 67.71 mL/min; ESTIMATED GFR 89.0 mL/min (>60); GLUCOSE RANDOM 99.0 mg/dL (70-99); POTASSIUM,K 3.8 mEq/L (3.5-5.1); PROTEIN TOTAL,TP 6.0 g/dl (6.4-8.2); SODIUM,NA 137.0 mEq/L (136-145)
[2024-10-14 21:53] LABS: CORONAVIRUS COVID-19 NAA NEGATIVE (NEGATIVE); INFLUENZA A NAA NEGATIVE (NEGATIVE); RESPIRATORY SYNCYTIAL VIR NAA NEGATIVE (NEGATIVE)
[2024-10-15 03:15] LABS: APPEARANCE,URINE CLEAR (Clear); GLUCOSE,URINE NEGATIVE (Negative); OCCULT BLOOD,URINE NEGATIVE (Negative)
[2024-10-15 05:44] LABS: BASOPHILS ABSOLUTE AUTO 0.0 K/mm3 (0.0-0.2); BASOPHILS PERCENT AUTO 1.0 % (0.0-1.0); EOSINOPHILS ABSOLUTE AUTO 0.1 K/mm3 (0.0-0.4); EOSINOPHILS PERCENT AUTO 6.1 % (0.0-6.0); IMMATURE GRAN ABSOLUTE AUTO 0.00 K/mm3 (0.00-0.05); IMMATURE GRAN PERCENT AUTO 0.0 % (0.0-0.4); LYMPHOCYTES ABSOLUTE AUTO 0.8 K/mm3 (1.0-4.8); LYMPHOCYTES PERCENT AUTO 78.6 % (24.0-44.0); MEAN PLATELET VOLUME 10.1 fl (9.4-12.4); MONOCYTES ABSOLUTE AUTO 0.0 K/mm3 (0.0-0.8); MONOCYTES PERCENT AUTO 4.1 % (0.0-8.0); NEUTROPHILS ABSOLUTE AUTO 0.1 K/mm3 (1.8-7.7); NEUTROPHILS PERCENT AUTO 10.2 % (41.0-71.0); NRBC ABSOLUTE 0.00 (0.00-0.02); NRBC PERCENT 0.0 % (0.0-0.2); PLATELET COUNT,PLT 135 K/mm3 (150-400); RED BLOOD CELL COUNT 2.20 M/mm3 (4.52-5.90)
[2024-10-15 05:47] LABS: WHITE BLOOD CELL COUNT,WBC 0.98 K/mm3 (3.9-11.3)
[2024-10-15 06:12] LABS: A/G RATIO 0.9 (1-2); ALANINE AMINOTRANSFERASE,ALT 17.0 U/L (16-63); ASPARTATE AMNIOTRANSFERASE,AST 10.0 U/L (15-37); BILIRUBIN TOTAL 0.6 mg/dL (0.2-1.0); BLOOD UREA NITROGEN,BUN 15.0 mg/dL (7-18); CARBON DIOXIDE,CO2 29.0 mEq/L (21-32); CHLORIDE,CL 104.0 mEq/L (98-107); CREATININE 0.7 mg/dL (0.7-1.3); EST CRCL DRUG DOSING (CG) 77.38 mL/min; ESTIMATED GFR 93.0 mL/min (>60); GLUCOSE RANDOM 97.0 mg/dL (70-99); PHOSPHORUS 4.1 mg/dL (2.6-4.7); POTASSIUM,K 3.7 mEq/L (3.5-5.1); PROTEIN TOTAL,TP 5.8 g/dl (6.4-8.2); SODIUM,NA 138.0 mEq/L (136-145)
[2024-10-15] MEDS: POSACONAZOLE 100 MG PO SCH (09:56)
[2024-10-15] MEDS ORDERED: Ondansetron 4 MG Tab.DIS PO PRN (15:07)
[2024-10-16 04:49] LABS: MEAN PLATELET VOLUME 10.6 fl (9.4-12.4); NRBC ABSOLUTE 0.00 (0.00-0.02); NRBC PERCENT 0.0 % (0.0-0.2); PLATELET COUNT,PLT 126 K/mm3 (150-400); RED BLOOD CELL COUNT 2.02 M/mm3 (4.52-5.90)
[2024-10-16 05:05] LABS: A/G RATIO 1.0 (1-2); ALANINE AMINOTRANSFERASE,ALT 17.0 U/L (16-63); ASPARTATE AMNIOTRANSFERASE,AST 12.0 U/L (15-37); BILIRUBIN TOTAL 0.6 mg/dL (0.2-1.0); BLOOD UREA NITROGEN,BUN 14.0 mg/dL (7-18); CARBON DIOXIDE,CO2 27.0 mEq/L (21-32); CHLORIDE,CL 105.0 mEq/L (98-107); CREATININE 0.7 mg/dL (0.7-1.3); EST CRCL DRUG DOSING (CG) 77.38 mL/min; ESTIMATED GFR 93.0 mL/min (>60); GLUCOSE RANDOM 95.0 mg/dL (70-99); POTASSIUM,K 3.7 mEq/L (3.5-5.1); PROTEIN TOTAL,TP 5.5 g/dl (6.4-8.2); SODIUM,NA 138.0 mEq/L (136-145)
[2024-10-16 05:07] LABS: WHITE BLOOD CELL COUNT,WBC 0.93 K/mm3 (3.9-11.3)
[2024-10-17 04:46] LABS: A/G RATIO 1.0 (1-2); ALANINE AMINOTRANSFERASE,ALT 19.0 U/L (16-63); ASPARTATE AMNIOTRANSFERASE,AST 14.0 U/L (15-37); BILIRUBIN TOTAL 0.8 mg/dL (0.2-1.0); BLOOD UREA NITROGEN,BUN 11.0 mg/dL (7-18); CARBON DIOXIDE,CO2 29.0 mEq/L (21-32); CHLORIDE,CL 103.0 mEq/L (98-107); CREATININE 0.7 mg/dL (0.7-1.3); EST CRCL DRUG DOSING (CG) 77.38 mL/min; ESTIMATED GFR 93.0 mL/min (>60); GLUCOSE RANDOM 91.0 mg/dL (70-99); POTASSIUM,K 3.5 mEq/L (3.5-5.1); PROTEIN TOTAL,TP 5.9 g/dl (6.4-8.2); SODIUM,NA 138.0 mEq/L (136-145)
[2024-10-17 05:33] LABS: MEAN PLATELET VOLUME 10.4 fl (9.4-12.4); NRBC ABSOLUTE 0.00 (0.00-0.02); NRBC PERCENT 0.0 % (0.0-0.2); PLATELET COUNT,PLT 128 K/mm3 (150-400); RED BLOOD CELL COUNT 2.49 M/mm3 (4.52-5.90)
[2024-10-17 05:45] LABS: WHITE BLOOD CELL COUNT,WBC 0.87 K/mm3 (3.9-11.3)
[2024-10-17 09:01] LABS: BASOPHILS ABSOLUTE AUTO 0.0 K/mm3 (0.0-0.2); BASOPHILS PERCENT AUTO 1.1 % (0.0-1.0); EOSINOPHILS ABSOLUTE AUTO 0.1 K/mm3 (0.0-0.4); EOSINOPHILS PERCENT AUTO 5.5 % (0.0-6.0); IMMATURE GRAN ABSOLUTE AUTO 0.00 K/mm3 (0.00-0.05); IMMATURE GRAN PERCENT AUTO 0.0 % (0.0-0.4); LYMPHOCYTES ABSOLUTE AUTO 0.7 K/mm3 (1.0-4.8); LYMPHOCYTES PERCENT AUTO 78.0 % (24.0-44.0); MONOCYTES ABSOLUTE AUTO 0.1 K/mm3 (0.0-0.8); MONOCYTES PERCENT AUTO 6.6 % (0.0-8.0); NEUTROPHILS ABSOLUTE AUTO 0.1 K/mm3 (1.8-7.7); NEUTROPHILS PERCENT AUTO 8.8 % (41.0-71.0)
[2024-10-17] MEDS: Potassium Chloride 20 MEQ Tab.ER PO ONE (20:08)
[2024-10-18 04:46] LABS: MEAN PLATELET VOLUME 11.3 fl (9.4-12.4); NRBC ABSOLUTE 0.00 (0.00-0.02); NRBC PERCENT 0.0 % (0.0-0.2); PLATELET COUNT,PLT 134 K/mm3 (150-400); RED BLOOD CELL COUNT 2.59 M/mm3 (4.52-5.90)
[2024-10-18 05:19] LABS: BLOOD UREA NITROGEN,BUN 17.0 mg/dL (7-18); CARBON DIOXIDE,CO2 26.0 mEq/L (21-32); CHLORIDE,CL 105.0 mEq/L (98-107); CREATININE 0.8 mg/dL (0.7-1.3); EST CRCL DRUG DOSING (CG) 67.71 mL/min; ESTIMATED GFR 89.0 mL/min (>60); GLUCOSE RANDOM 104.0 mg/dL (70-99); POTASSIUM,K 4.3 mEq/L (3.5-5.1); SODIUM,NA 139.0 mEq/L (136-145)
[2024-10-18 06:09] LABS: WHITE BLOOD CELL COUNT,WBC 1.10 K/mm3 (3.9-11.3)
[2024-10-18 07:18] LABS: BAND PERCENT MAN 0 % (0-10); BASOPHILS PERCENT MAN 1 (0.2-1.2); EOSINOPHILS PERCENT MAN 4 % (0.8-7.0); LYMPHOCYTES % ATYPICAL MANUAL 0 %; LYMPHOCYTES PERCENT MAN 72 % (20-40); MONOCYTES PERCENT MAN 11 % (2-10)
[2024-10-18 07:21] LABS: PLATELET COUNT ESTIMATE DECREASED; TEARDROP CELLS 1+ SLIGHT
[2024-10-19 04:58] LABS: MEAN PLATELET VOLUME 10.7 fl (9.4-12.4); NRBC ABSOLUTE 0.00 (0.00-0.02); NRBC PERCENT 0.0 % (0.0-0.2); PLATELET COUNT,PLT 122 K/mm3 (150-400); RED BLOOD CELL COUNT 2.49 M/mm3 (4.52-5.90)
[2024-10-19 05:43] LABS: WHITE BLOOD CELL COUNT,WBC 1.39 K/mm3 (3.9-11.3)
[2024-10-19 07:13] LABS: BAND PERCENT MAN 2 % (0-10); BASOPHILS PERCENT MAN 1 (0.2-1.2); EOSINOPHILS PERCENT MAN 3 % (0.8-7.0); LYMPHOCYTES % ATYPICAL MANUAL 0 %; LYMPHOCYTES PERCENT MAN 73 % (20-40); MONOCYTES PERCENT MAN 11 % (2-10)
[2024-10-19 07:14] LABS: PLATELET COUNT ESTIMATE DECREASED
[2024-10-20 06:02] LABS: MEAN PLATELET VOLUME 9.8 fl (9.4-12.4); NRBC ABSOLUTE 0.00 (0.00-0.02); NRBC PERCENT 0.0 % (0.0-0.2); PLATELET COUNT,PLT 110 K/mm3 (150-400); RED BLOOD CELL COUNT 2.46 M/mm3 (4.52-5.90)
[2024-10-20 06:07] LABS: WHITE BLOOD CELL COUNT,WBC 1.47 K/mm3 (3.9-11.3)
[2024-10-20 06:30] LABS: BAND PERCENT MAN 2 % (0-10); BASOPHILS PERCENT MAN 0 (0.2-1.2); EOSINOPHILS PERCENT MAN 4 % (0.8-7.0); LYMPHOCYTES % ATYPICAL MANUAL 2 %; LYMPHOCYTES PERCENT MAN 51 % (20-40); MONOCYTES PERCENT MAN 17 % (2-10)
[2024-10-20 06:31] LABS: PLATELET COUNT ESTIMATE DECREASED; TEARDROP CELLS 1+ SLIGHT
[2024-10-21 05:47] LABS: MEAN PLATELET VOLUME 10.1 fl (9.4-12.4); NRBC ABSOLUTE 0.00 (0.00-0.02); NRBC PERCENT 0.0 % (0.0-0.2); PLATELET COUNT,PLT 106 K/mm3 (150-400); RED BLOOD CELL COUNT 2.39 M/mm3 (4.52-5.90)
[2024-10-21 05:51] LABS: WHITE BLOOD CELL COUNT,WBC 1.58 K/mm3 (3.9-11.3)
[2024-10-21 06:20] LABS: BAND PERCENT MAN 1 % (0-10); BASOPHILS PERCENT MAN 1 (0.2-1.2); EOSINOPHILS PERCENT MAN 4 % (0.8-7.0); LYMPHOCYTES % ATYPICAL MANUAL 2 %; LYMPHOCYTES PERCENT MAN 59 % (20-40); MONOCYTES PERCENT MAN 12 % (2-10)
[2024-10-21 06:21] LABS: PLATELET COUNT ESTIMATE DECREASED
[2024-10-21 06:23] LABS: TEARDROP CELLS 1+ SLIGHT
[2024-10-22 05:29] LABS: MEAN PLATELET VOLUME 10.9 fl (9.4-12.4); NRBC ABSOLUTE 0.00 (0.00-0.02); NRBC PERCENT 0.0 % (0.0-0.2); PLATELET COUNT,PLT 111 K/mm3 (150-400); RED BLOOD CELL COUNT 2.38 M/mm3 (4.52-5.90)
[2024-10-22 05:31] LABS: WHITE BLOOD CELL COUNT,WBC 1.70 K/mm3 (3.9-11.3)
[2024-10-22 06:16] LABS: BAND PERCENT MAN 1 % (0-10); BASOPHILS PERCENT MAN 0 (0.2-1.2); EOSINOPHILS PERCENT MAN 6 % (0.8-7.0); LYMPHOCYTES % ATYPICAL MANUAL 1 %; LYMPHOCYTES PERCENT MAN 52 % (20-40); METAMYELOCYTE PERCENT MAN 1; MONOCYTES PERCENT MAN 17 % (2-10)
[2024-10-22 06:17] LABS: PLATELET COUNT ESTIMATE DECREASED; TEARDROP CELLS 1+ SLIGHT
[2024-10-23 04:10] LABS: MEAN PLATELET VOLUME 11.1 fl (9.4-12.4); NRBC ABSOLUTE 0.00 (0.00-0.02); NRBC PERCENT 0.0 % (0.0-0.2); PLATELET COUNT,PLT 105 K/mm3 (150-400); RED BLOOD CELL COUNT 2.33 M/mm3 (4.52-5.90)
[2024-10-23 04:28] LABS: WHITE BLOOD CELL COUNT,WBC 2.48 K/mm3 (3.9-11.3)
[2024-10-23 05:51] LABS: BAND PERCENT MAN 2 % (0-10); BASOPHILS PERCENT MAN 0 (0.2-1.2); EOSINOPHILS PERCENT MAN 2 % (0.8-7.0); LYMPHOCYTES % ATYPICAL MANUAL 0 %; LYMPHOCYTES PERCENT MAN 38 % (20-40); MONOCYTES PERCENT MAN 7 % (2-10)
[2024-10-23 05:54] LABS: TEARDROP CELLS 1+ SLIGHT
[2024-10-23 05:55] LABS: PLATELET COUNT ESTIMATE ADEQUATE
== END 2024-10-23 12:45 | disposition home health service (06) | DRG 808 ==
LOC: JD.ED 19:39 → JD.MS 23:24
PROVIDERS: ADMIT Family Medicine; ATTEND Family Medicine
PROC: 30233N1 Transfusion of Nonautologous Red Blood Cells into Peripheral Vein, Percutaneous Approach (ICD-10-PCS; principal; 2024-10-14)
DX: D70.2 Other drug-induced agranulocytosis (principal); J18.9 Pneumonia, unspecified organism; D64.89 Other specified anemias; C92.00 Acute myeloblastic leukemia, not having achieved remission; J98.11 Atelectasis; C95.90 Leukemia, unspecified not having achieved remission; D70.9 Neutropenia, unspecified; N40.0 Benign prostatic hyperplasia without lower urinary tract symptoms; E86.0 Dehydration; T50.905A Adverse effect of unspecified drugs, medicaments and biological substances, initial encounter; H54.7 Unspecified visual loss; R50.81 Fever presenting with conditions classified elsewhere; D63.8 Anemia in other chronic diseases classified elsewhere; K21.9 Gastro-esophageal reflux disease without esophagitis; M19.90 Unspecified osteoarthritis, unspecified site; E53.8 Deficiency of other specified B group vitamins; Z85.6 Personal history of leukemia; Z86.16 Personal history of COVID-19; Z98.49 Cataract extraction status, unspecified eye; Z95.828 Presence of other vascular implants and grafts; Z90.49 Acquired absence of other specified parts of digestive tract; Z98.890 Other specified postprocedural states; Z79.899 Other long term (current) drug therapy; Z88.8 Allergy status to other drugs, medicaments and biological substances; Z96.649 Presence of unspecified artificial hip joint; Z95.5 Presence of coronary angioplasty implant and graft
CPT/HCPCS: 36415; 71045; 80053; 83605; 83880; 85025; 87040 ×2; 87637; 96360; 96361; 99285; J7030; 36430; 80048; 81003; 83735; 84100; 85007; 85027; 86140; 86850; 86900; 86901; 86922; 94667; 94668; 94760; 94761; 97110-GP; 97112-GP; 97116-GP; 97161-GP; 97530-GP; 99223; 99231; 99232; 99233; 99239; A9270-GY; J0696; J1271; J1642; J1650; J3490; J7050; J8499-GY; P9016